=== PATIENT | female | born 1940 | race Caucasian/White ===

== ENCOUNTER 2020-05-12 15:32 | Outpatient (CLI) | payer MEDICARE, SELFPAY ==
--- NOTE | ~2020-05-12 | CT_ITS ---
EXAMINATION: CT chest wo con EXAM DATE: 05/12/2020 15:57 INDICATION: Lung cancer. TECHNIQUE: Spiral CT of the chest without contrast. Axial, coronal and sagittal images were reviewe d. Coronal maximum intensity pixel images of chest reviewed. The dose-length product (DLP) for this examination was 116.67 mGy-cm. The exposure was tailored according to patient size (auto mA exposur e control), and iterative reconstruction (ASIR) was used as additional dose reduction technique. Comp arison is made to prior examination from 09/25/2019. FINDINGS: Surgical changes from left lower lobectomy. Mild emphysema. There is mild bronchiectasis. S everal bilateral groundglass nodular opacities up to 4 mm in size again noted, chronic and unchanged. There are no pleural or pericardial effusions. Tracheobronchial tree is patent. There is no med iastinal, hilar or axillary lymphadenopathy. There is no pneumothorax. Heart normal in size. Th ere is mild coronary arterial calcification, arterial sclerosis. Moderate-sized gastroesophageal hia juan hernia. Splenic granulomata. T3 bone island, T6 hemangioma unchanged. There is no significant i nterval change. IMPRESSION: 1. Mild emphysema and bronchiectasis. 2. Moderate hiatal hernia. 3. Other chronic, surgical changes. Reviewed, dictated and finalized at location B.
== END 2020-05-12 15:33 | disposition home or self-care (01) ==
PROVIDERS: PCP Family Medicine; Visit Provider Nurse Practitioner Family
DX: C34.90 Malignant neoplasm of unspecified part of unspecified bronchus or lung (principal); J43.9 Emphysema, unspecified; J47.9 Bronchiectasis, uncomplicated; K44.9 Diaphragmatic hernia without obstruction or gangrene; Z98.890 Other specified postprocedural states
CPT/HCPCS: 71250

== ENCOUNTER → 2021-05-08 04:46 | Outpatient (CLI) | payer MEDICARE, SELFPAY ==
[2021-05-08 18:47] LABS: SARS-CoV-2 RNA PCR Negative
== END ==
PROVIDERS: PCP Family Medicine; Visit Provider Internal Medicine Gastroenterology
DX: Z01.812 Encounter for preprocedural laboratory examination (principal); Z20.822 Contact with and (suspected) exposure to COVID-19
CPT/HCPCS: C9803; U0003; U0005

== ENCOUNTER 2021-05-11 00:59 | Day surgery (SDC) | payer MEDICARE, SELFPAY ==
[2021-04-24 13:20] VITALS: BMI 22.2
--- NOTE | 2021-05-11 06:56 | WPDANESEPP ---
Anes - Eval Pre Procedure Procedure: Operation Date: 05/11/21 08:00 Proposed Procedures p Esophagogastroduodenoscopy - Lorne Bonner MD Date/Time: 05/11/21 06:56 Pre Op Diagnosis: dysphagia Patient Data Age: 81 Gender: F Height: 1.6 m Weight: 57 kg Allergies Allergy/AdvReac Type Severity Reaction Status Date / Time Sulfa (Sulfonamide Allergy Severe Rash Verified 04/24/21 13:15 Antibiotics) adhesive tape AdvReac Hives Verified 04/24/21 13:15 Home Medications Medication Instructions Recorded Confirmed Type Eliquis 5 mg PO Q12HR 30 Days #60 tablet 10/01/19 04/24/21 Rx sotalol 80 mg tablet 40 mg PO ONCE tablet 11/06/19 04/24/21 History fluticasone propionate [Flovent 2 puff INHALATION Q12HRT PRN 04/24/21 04/24/21 History HFA] memantine 10 mg PO DAILY 04/24/21 04/24/21 History Patient hx anesthesia problems: none Family hx anesthesia problems: none [facility] Past Medical History Medical History Arthritis Asthma Recently diagnosed on PFTs; she has yet to fill her inhaler. Notes having no symptoms of such. Atrial fibrillation Metz palsy right sided Cataracts, bilateral Dementia early Esophageal dilatation x2 Esophageal stricture Last EGD with dilatation was in June [address] Bonner. Fracture closed, clavicle, shaft Heart murmur HTN (hypertension) boderline Hyperlipidemia boderline Hypothyroid Lung cancer Status post left lower lobectomy [place] [address] Austin Adkins. Mild dementia Mitral valve disease Mild MR by echo September 2019. Patient of Dr. Chaz Ortiz. Seasonal allergies Severe sepsis Hospitalized for E coli septicemia September 2019 Surgical History Surgical History H/O: hysterectomy History of appendectomy 1959. History of bladder suspension procedure History of breast biopsy With benign pathology. History of cataract surgery Hx of cataract removal with insertion of prosthetic lens Status post lobectomy of lung Left lower lobectomy for lung cancer in 2013. Family History Family History Father Cerebrovascular accident Grandparent Family history of malignant neoplasm Mother Unknown family medical history Social History Social History Social History: The patient lives in [place], [place] with her significant other, Mike. She designates her daughter, Katya Foy, as her surrogate decision maker and she wishes to be a full code. She has at the most a 5 pack year smoking history and quit in her 20s or 30s. No alcohol or drug use. Smoking packs per day: 0.5 Smoking cigarettes per day: 10.0 Smoking status: Former smoker Tobacco type: cigarettes Alcohol intake: never Substance use: never Substance use type: does not use Living arrangements: with friend(s) Additional living arrangements comments: Lives at home with her significant other IVONE. She has cats at home. Gender identity (if verbalized by the patient): Female Spiritual care concerns: No Agree to blood products: Yes Exam Day of Procedure 05/11/21 06:56
[2021-05-11 07:11] VITALS: BP 172/52; PULSE 52; RESP 18; TEMP 36.5; O2SAT 99; BMI 21.9
--- NOTE | 2021-05-11 07:18 | WPDANESEPPF ---
Anes - Initial Pre Proc Eval Procedure: Operation Date: 05/11/21 08:00 Proposed Procedures p Esophagogastroduodenoscopy - Lorne Bonner MD Date/Time: 05/11/21 07:18 Surgeon: Lorne Bonner MD Pre Op Diagnosis: dysphagia Patient Data Age: 81 Gender: F Height: 5 ft 3 in Weight: 56.2 kg Last Vital Signs Temp 97.7 F 05/11/21 07:11 Pulse 52 L 05/11/21 07:11 Resp 18 05/11/21 07:11 BP 172/52 H 05/11/21 07:11 Pulse Ox 99 05/11/21 07:11 Allergies Allergy/AdvReac Type Severity Reaction Status Date / Time Sulfa (Sulfonamide Allergy Severe Rash Verified 05/11/21 07:10 Antibiotics) adhesive tape AdvReac Hives Verified 05/11/21 07:10 Home Medications Medication Instructions Recorded Confirmed Type Eliquis 5 mg PO Q12HR 30 Days #60 tablet 10/01/19 05/11/21 Rx sotalol 80 mg tablet 40 mg PO ONCE tablet 11/06/19 04/24/21 History fluticasone propionate [Flovent 2 puff INHALATION Q12HRT PRN 04/24/21 04/24/21 History HFA] memantine 10 mg PO DAILY 04/24/21 04/24/21 History Patient hx anesthesia problems: none Family hx anesthesia problems: none PMFSH Past Medical History Medical History Arthritis Asthma Recently diagnosed on PFTs; she has yet to fill her inhaler. Notes having no symptoms of such. Atrial fibrillation Metz palsy right sided Cataracts, bilateral Dementia early Esophageal dilatation x2 Esophageal stricture Last EGD with dilatation was in June [address] Bonner. Fracture closed, clavicle, shaft Heart murmur HTN (hypertension) boderline Hyperlipidemia boderline Hypothyroid Lung cancer Status post left lower lobectomy in [address] Austin Adkins. Mild dementia Mitral valve disease Mild MR by echo September 2019. Patient of Dr. Chaz Ortiz. Seasonal allergies Severe sepsis Hospitalized for E coli septicemia September 2019 Surgical History Surgical History H/O: hysterectomy History of appendectomy 1959. History of bladder suspension procedure History of breast biopsy With benign pathology. History of cataract surgery Hx of cataract removal with insertion of prosthetic lens Status post lobectomy of lung Left lower lobectomy for lung cancer in 2014. Family History Family History Father Cerebrovascular accident Grandparent Family history of malignant neoplasm Mother Unknown family medical history Social History Social History Social History: The patient lives in [place], [place] with her significant other, Mike. She designates her daughter, Katya Foy, as her surrogate decision maker and she wishes to be a full code. She has at the most a 5 pack year smoking history and quit in her 20s or 30s. No alcohol or drug use. Smoking packs per day: 0.5 Smoking cigarettes per day: 10.0 Smoking status: Former smoker Tobacco type: cigarettes Alcohol intake: never Substance use: never Substance use type: does not use Living arrangements: with friend(s) Additional living arrangements comments: Lives at home with her significant other IVONE. She has cats at home. Gender identity (if verbalized by the patient): Female Spiritual care concerns: No Agree to blood products: Yes Anes - Eval Final PreProcedure Day of Procedure 05/11/21 07:18 Patient weight: normal Heart: bradycardia and murmur Lungs: clear to auscultation Airway: Mallampati scale class II Neurological: alert and oriented Last oral intake: >/= 8 hours ASA classification: III Emergent: no Anesthetic plan: proceed Anesthesia type and monitoring: general GIVS and standard monitoring Informed Consent: The patient's anesthetic plan and its attendant risks and benefits were discussed with the patient/family/POA. Que
[2021-05-11] MEDS: LACTATED RINGERS 1,000 ML 150 ML IV CONT (07:21)
--- NOTE | 2021-05-11 08:03 | PM.HPGS ---
History of Present Illness History of Present Illness Consent: Risks, benefits, and alternatives have been discussed and questions answered. Patient agrees to proceed with procedure. Chief complaint: dysphagia Narrative: Candie Monroy is a 81 year old female who has been having increasing difficulty with swallowing. About 2 years ago she had a high-grade esophageal stricture which was dilated. She denies chronic acid reflux. Lately she states that she has to leave the table at times when food is stuck Review of Systems Review of Systems: All systems reviewed & are unremarkable except as noted in HPI and below PMFSH Past Medical History Medical History (Updated 05/11/21 @ 08:05 by Lorne Bonner MD) Arthritis Asthma Recently diagnosed on PFTs; she has yet to fill her inhaler. Notes having no symptoms of such. Atrial fibrillation Metz palsy right sided Cataracts, bilateral Dementia early Esophageal dilatation x2 Esophageal stricture Last EGD with dilatation was in June [address] Bonner. Fracture closed, clavicle, shaft Heart murmur HTN (hypertension) boderline Hyperlipidemia boderline Hypothyroid Lung cancer Status post left lower lobectomy [place] [address] Austin Adkins. Mild dementia Mitral valve disease Mild MR by echo September 2019. Patient of Dr. Chaz Ortiz. Seasonal allergies Severe sepsis Hospitalized for E coli septicemia September 2019 Surgical History Surgical History H/O: hysterectomy History of appendectomy 1959. History of bladder suspension procedure History of breast biopsy With benign pathology. History of cataract surgery Hx of cataract removal with insertion of prosthetic lens Status post lobectomy of lung Left lower lobectomy for lung cancer in 2013. Family History Family History Father Cerebrovascular accident Grandparent Family history of malignant neoplasm Mother Unknown family medical history Social History Social History Social History: The patient lives in [place], [place] with her significant other, Mike. She designates her daughter, Katya Foy, as her surrogate decision maker and she wishes to be a full code. She has at the most a 5 pack year smoking history and quit in her 20s or 30s. No alcohol or drug use. Smoking packs per day: 0.5 Smoking cigarettes per day: 10.0 Smoking status: Former smoker Tobacco type: cigarettes Alcohol intake: never Substance use: never Substance use type: does not use Living arrangements: with friend(s) Additional living arrangements comments: Lives at home with her significant other IVONE. She has cats at home. Gender identity (if verbalized by the patient): Female Spiritual care concerns: No Agree to blood products: Yes Meds Home Medications and Allergies Home Medications Medication Instructions Recorded Confirmed Type Eliquis 5 mg PO Q12HR 30 Days #60 tablet 10/01/19 05/11/21 Rx sotalol 80 mg tablet 40 mg PO ONCE tablet 11/06/19 04/24/21 History fluticasone propionate [Flovent 2 puff INHALATION Q12HRT PRN 04/24/21 05/11/21 History HFA] memantine 10 mg PO DAILY 04/24/21 04/24/21 History Allergies Allergy/AdvReac Type Severity Reaction Status Date / Time Sulfa (Sulfonamide Allergy Severe Rash Verified 05/11/21 07:10 Antibiotics) adhesive tape AdvReac Hives Verified 05/11/21 07:10 Vital Signs Vital Signs - 24 hr 05/11/21 07:11 Temperature 36.5 C Pulse Rate 52 L Respiratory Rate 18 Blood Pressure 172/52 H Pulse Oximetry 99 Exam Const: General: alert Orientation/consciousness: patient oriented x3 Resp: Auscultation: clear to auscultation bilaterally Cardio: Rhythm: regular rhythm GI: GI Palp: Yes Soft to palpation and No Tenderness to palpation present (GI) N
[2021-05-11 08:18] VITALS: BP 106/48; PULSE 45; RESP 18; O2SAT 98
[2021-05-11 08:28] VITALS: BP 102/46; PULSE 44; RESP 18; O2SAT 97
[2021-05-11 08:37] VITALS: BP 113/58; PULSE 44; RESP 18; O2SAT 99
== END 2021-05-11 08:55 | disposition home or self-care (01) ==
PROVIDERS: PCP Family Medicine; Visit Provider Internal Medicine Gastroenterology
PROC: 0DJ08ZZ Inspection of Upper Intestinal Tract, Via Natural or Artificial Opening Endoscopic (ICD-10-PCS; CPT 43235; principal; 2021-05-11 08:00)
DX: R13.19 Other dysphagia (principal); K22.2 Esophageal obstruction; K44.9 Diaphragmatic hernia without obstruction or gangrene; M19.90 Unspecified osteoarthritis, unspecified site; J45.909 Unspecified asthma, uncomplicated; R01.1 Cardiac murmur, unspecified; Z85.118 Personal history of other malignant neoplasm of bronchus and lung; I34.8 Other nonrheumatic mitral valve disorders; Z87.891 Personal history of nicotine dependence; Z79.01 Long term (current) use of anticoagulants
CPT/HCPCS: 43249; C1726; J2704; J7120

== ENCOUNTER 2021-07-13 00:18 | Day surgery (SDC) | payer MEDICARE, SELFPAY ==
[2021-07-01 14:31] VITALS: BMI 21.9
--- NOTE | 2021-07-13 08:54 | PM.HPGS ---
History of Present Illness History of Present Illness Consent: Risks, benefits, and alternatives have been discussed and questions answered. Patient agrees to proceed with procedure. Chief complaint: Esophageal Stricture Narrative: Candie Monroy is a 81 year old female with an esophageal stricture. It was dilated in April of this year, but only up to 12 mm because it was quite narrow. She is still having some dysphagia. She returns now for further treatment Review of Systems Review of Systems: All systems reviewed & are unremarkable except as noted in HPI and below PMFSH Past Medical History Medical History Arthritis Asthma Recently diagnosed on PFTs; she has yet to fill her inhaler. Notes having no symptoms of such. Atrial fibrillation Metz palsy right sided Cataracts, bilateral Dementia early Esophageal dilatation x2 Esophageal stricture Last EGD with dilatation was in June [address] Bonner. Fracture closed, clavicle, shaft Heart murmur HTN (hypertension) boderline Hyperlipidemia boderline Hypothyroid Lung cancer Status post left lower lobectomy in [address] Austin Adkins. Mild dementia Mitral valve disease Mild MR by echo September 2019. Patient of Dr. Chaz Ortiz. Seasonal allergies Severe sepsis Hospitalized for E coli septicemia September 2019 Surgical History Surgical History H/O: hysterectomy History of appendectomy 1959. History of bladder suspension procedure History of breast biopsy With benign pathology. History of cataract surgery Hx of cataract removal with insertion of prosthetic lens Status post lobectomy of lung Left lower lobectomy for lung cancer in 2013. Family History Family History Father Cerebrovascular accident Grandparent Family history of malignant neoplasm Mother Unknown family medical history Social History Social History Social History: The patient lives in [place], [place] with her significant other, Mike. She designates her daughter, Katya Foy, as her surrogate decision maker and she wishes to be a full code. She has at the most a 5 pack year smoking history and quit in her 20s or 30s. No alcohol or drug use. Smoking packs per day: 0.5 Smoking cigarettes per day: 10.0 Smoking status: Former smoker Tobacco type: cigarettes Alcohol intake: current Drinks per week: 1 Substance use: never Substance use type: does not use Living arrangements: with friend(s) Additional living arrangements comments: LIVES WITH BOYFRIEND Gender identity (if verbalized by the patient): Female Spiritual care concerns: No Agree to blood products: Yes Meds Home Medications and Allergies Home Medications Medication Instructions Recorded Confirmed Type Eliquis 5 mg PO Q12HR 30 Days #60 tablet 10/01/19 07/01/21 Rx sotalol 80 mg tablet 40 mg PO ONCE tablet 11/06/19 07/01/21 History Flovent HFA 2 puff INHALATION Q12HRT PRN 04/24/21 07/01/21 History memantine 10 mg PO DAILY 04/24/21 07/01/21 History omeprazole 40 mg capsule,delayed 40 mg PO DAILY #30 cap 05/13/21 07/01/21 Rx release Allergies Allergy/AdvReac Type Severity Reaction Status Date / Time Sulfa (Sulfonamide Allergy Severe Rash Verified 07/13/21 10:06 Antibiotics) adhesive tape AdvReac Hives Verified 07/13/21 10:06 Exam Const: General: alert Orientation/consciousness: patient oriented x3 Resp: Auscultation: clear to auscultation bilaterally Cardio: Rhythm: regular rhythm GI: GI Palp: Yes Soft to palpation and No Tenderness to palpation present (GI) Neuro: General: patient oriented x3 Assessment and Plan Assessment and plan (1) Dysphagia: Code(s): R13.10 - Dysphagia, unspecified Status: Acute
--- NOTE | 2021-07-13 09:25 | WPDANESEPPF ---
Anes - Initial Pre Proc Eval Procedure: Operation Date: 07/13/21 11:00 Proposed Procedures p Esophagogastroduodenoscopy - Lorne Bonner MD Date/Time: 07/13/21 09:25 Surgeon: Lorne Bonner MD Pre Op Diagnosis: Esophageal Stricture Patient Data Age: 81 Gender: F Height: 1.63 m Weight: 58 kg Allergies Allergy/AdvReac Type Severity Reaction Status Date / Time Sulfa (Sulfonamide Allergy Severe Rash Verified 07/13/21 10:06 Antibiotics) adhesive tape AdvReac Hives Verified 07/13/21 10:06 Home Medications Medication Instructions Recorded Confirmed Type Eliquis 5 mg PO Q12HR 30 Days #60 tablet 10/01/19 07/01/21 Rx sotalol 80 mg tablet 40 mg PO ONCE tablet 11/06/19 07/01/21 History Flovent HFA 2 puff INHALATION Q12HRT PRN 04/24/21 07/01/21 History memantine 10 mg PO DAILY 04/24/21 07/01/21 History omeprazole 40 mg capsule,delayed 40 mg PO DAILY #30 cap 05/13/21 07/01/21 Rx release Patient hx anesthesia problems: none Family hx anesthesia problems: none PMFSH Past Medical History Medical History Arthritis Asthma Recently diagnosed on PFTs; she has yet to fill her inhaler. Notes having no symptoms of such. Atrial fibrillation Metz palsy right sided Cataracts, bilateral Dementia early Esophageal dilatation x2 Esophageal stricture Last EGD with dilatation was in June [address] Bonner. Fracture closed, clavicle, shaft Heart murmur HTN (hypertension) boderline Hyperlipidemia boderline Hypothyroid Lung cancer Status post left lower lobectomy [place] [address] Austin Adkins. Mild dementia Mitral valve disease Mild MR by echo September 2019. Patient of Dr. Chaz Ortiz. Seasonal allergies Severe sepsis Hospitalized for E coli septicemia September 2019 Surgical History Surgical History H/O: hysterectomy History of appendectomy 1959. History of bladder suspension procedure History of breast biopsy With benign pathology. History of cataract surgery Hx of cataract removal with insertion of prosthetic lens Status post lobectomy of lung Left lower lobectomy for lung cancer in 2013. Family History Family History Father Cerebrovascular accident Grandparent Family history of malignant neoplasm Mother Unknown family medical history Social History Social History Social History: The patient lives in [place], [place] with her significant other, Mike. She designates her daughter, Katya Foy, as her surrogate decision maker and she wishes to be a full code. She has at the most a 5 pack year smoking history and quit in her 20s or 30s. No alcohol or drug use. Smoking packs per day: 0.5 Smoking cigarettes per day: 10.0 Smoking status: Former smoker Tobacco type: cigarettes Alcohol intake: current Drinks per week: 1 Substance use: never Substance use type: does not use Living arrangements: with friend(s) Additional living arrangements comments: LIVES WITH BOYFRIEND Gender identity (if verbalized by the patient): Female Spiritual care concerns: No Agree to blood products: Yes Anes - Eval Final PreProcedure Day of Procedure 07/13/21 09:25 Patient weight: normal Heart: regular rate and rhythm Lungs: clear to auscultation and normal air movement Airway: Mallampati scale class II Neurological: alert and oriented Last oral intake: >/= 8 hours ASA classification: III Emergent: no Anesthetic plan: proceed Anesthesia type and monitoring: general GIVS Informed Consent: The patient's anesthetic plan and its attendant risks and benefits were discussed with the patient/family/POA. Questions were solicited and answers provided to the satisfaction of the patient/family/POA.
[2021-07-13 10:07] VITALS: BP 161/68; PULSE 49; RESP 18; TEMP 36.4; O2SAT 98
[2021-07-13] MEDS: LACTATED RINGERS 1,000 ML 150 ML IV CONT (10:16)
[2021-07-13 11:00] VITALS: BP 85/50; PULSE 54; RESP 23; O2SAT 99
[2021-07-13 11:10] VITALS: BP 95/43; PULSE 46; RESP 21; O2SAT 100
[2021-07-13 11:20] VITALS: BP 144/51; PULSE 54; RESP 26; O2SAT 97
== END 2021-07-13 11:39 | disposition home or self-care (01) ==
PROVIDERS: PCP Family Medicine; Visit Provider Internal Medicine Gastroenterology
PROC: 0DJ08ZZ Inspection of Upper Intestinal Tract, Via Natural or Artificial Opening Endoscopic (ICD-10-PCS; CPT 43235; principal; 2021-07-13 11:00)
DX: R13.19 Other dysphagia (principal); K22.2 Esophageal obstruction; K44.9 Diaphragmatic hernia without obstruction or gangrene; M19.90 Unspecified osteoarthritis, unspecified site; J45.909 Unspecified asthma, uncomplicated; G51.0 Bell's palsy; F03.90 Unspecified dementia, unspecified severity, without behavioral disturbance, psychotic disturbance, mood disturbance, and anxiety; R01.1 Cardiac murmur, unspecified; I10 Essential (primary) hypertension; E78.5 Hyperlipidemia, unspecified; E03.9 Hypothyroidism, unspecified; I05.9 Rheumatic mitral valve disease, unspecified; Z87.891 Personal history of nicotine dependence; I48.91 Unspecified atrial fibrillation; Z79.01 Long term (current) use of anticoagulants
CPT/HCPCS: 43249; C1726; J2704; J7120

== ENCOUNTER 2021-09-21 02:11 | Day surgery (SDC) | payer MEDICARE, SELFPAY ==
--- NOTE | 2021-09-18 14:01 | PM.HPGS ---
History of Present Illness History of Present Illness Consent: Risks, benefits, and alternatives have been discussed and questions answered. Patient agrees to proceed with procedure. Chief complaint: dysphagia, esophageal stricture Narrative: Candie Monroy is a 81 year old female who has a high-grade stricture of the distal esophagus. She has had this dilated twice this year but he is again having difficulty swallowing. Review of Systems Review of Systems: All systems reviewed & are unremarkable except as noted in HPI and below PMFSH Past Medical History Medical History Arthritis Asthma Recently diagnosed on PFTs; she has yet to fill her inhaler. Notes having no symptoms of such. Atrial fibrillation Metz palsy right sided Cataracts, bilateral Dementia early Esophageal dilatation x2 Esophageal stricture Last EGD with dilatation was in June [address] Bonner. Fracture closed, clavicle, shaft Heart murmur HTN (hypertension) boderline Hyperlipidemia boderline Hypothyroid Lung cancer Status post left lower lobectomy in [address] Austin Adkins. Mild dementia Mitral valve disease Mild MR by echo September 2019. Patient of Dr. Chaz Ortiz. Seasonal allergies Severe sepsis Hospitalized for E coli septicemia September 2019 Surgical History Surgical History H/O: hysterectomy History of appendectomy 1959. History of bladder suspension procedure History of breast biopsy With benign pathology. History of cataract surgery Hx of cataract removal with insertion of prosthetic lens Status post lobectomy of lung Left lower lobectomy for lung cancer in 2013. Family History Family History Father Cerebrovascular accident Grandparent Family history of malignant neoplasm Mother Unknown family medical history Social History Social History Social History: The patient lives in [place], [place] with her significant other, Mike. She designates her daughter, Katya Foy, as her surrogate decision maker and she wishes to be a full code. She has at the most a 5 pack year smoking history and quit in her 20s or 30s. No alcohol or drug use. Smoking packs per day: 0.5 Smoking cigarettes per day: 10.0 Smoking status: Former smoker Tobacco type: cigarettes Alcohol intake: current Drinks per week: 1 Substance use: never Substance use type: does not use Living arrangements: with friend(s) Additional living arrangements comments: SIG. OTHER Gender identity (if verbalized by the patient): Female Spiritual care concerns: No Agree to blood products: Yes Meds Home Medications and Allergies Home Medications Medication Instructions Recorded Confirmed Type Eliquis 5 mg PO Q12HR 30 Days #60 tablet 10/01/19 09/21/21 Rx sotalol 80 mg tablet 40 mg PO BID tablet 11/06/19 09/21/21 History Flovent HFA 2 puff INHALATION Q12HRT PRN 04/24/21 09/21/21 History memantine 10 mg PO DAILY 04/24/21 09/21/21 History omeprazole 40 mg capsule,delayed 40 mg PO DAILY #30 cap 05/13/21 09/21/21 Rx release Allergies Allergy/AdvReac Type Severity Reaction Status Date / Time Sulfa (Sulfonamide Allergy Severe Rash Verified 09/21/21 10:27 Antibiotics) adhesive tape AdvReac Hives Verified 09/21/21 10:27 Exam Const: General: alert Orientation/consciousness: patient oriented x3 Resp: Auscultation: clear to auscultation bilaterally Cardio: Rhythm: regular rhythm GI: GI Palp: Yes Soft to palpation and No Tenderness to palpation present (GI) Neuro: General: patient oriented x3 Assessment and Plan Assessment and plan (1) Dysphagia: Code(s): R13.10 - Dysphagia, unspecified Status: Acute Assessment and Plan: EGD with possible biopsy o
[2021-09-21 10:31] VITALS: BP 134/63; PULSE 52; RESP 15; TEMP 36.9; O2SAT 99; BMI 23.6
[2021-09-21] MEDS: LACTATED RINGERS 1,000 ML 150 ML IV CONT (10:34)
--- NOTE | 2021-09-21 10:57 | WPDANESEPPF ---
Anes - Initial Pre Proc Eval Procedure: Operation Date: 09/21/21 11:30 Proposed Procedures p Esophagogastroduodenoscopy - Lorne Bonner MD Date/Time: 09/21/21 10:57 Surgeon: Lorne Bonner MD Pre Op Diagnosis: dysphagia, esophageal stricture Patient Data Age: 81 Gender: F Height: 1.52 m Weight: 55 kg Last Vital Signs Temp 36.9 C 09/21/21 10:31 Pulse 52 L 09/21/21 10:31 Resp 15 09/21/21 10:31 BP 134/63 09/21/21 10:31 Pulse Ox 99 09/21/21 10:31 Allergies Allergy/AdvReac Type Severity Reaction Status Date / Time Sulfa (Sulfonamide Allergy Severe Rash Verified 09/21/21 10:27 Antibiotics) adhesive tape AdvReac Hives Verified 09/21/21 10:27 Home Medications Medication Instructions Recorded Confirmed Type Eliquis 5 mg PO Q12HR 30 Days #60 tablet 10/01/19 09/21/21 Rx sotalol 80 mg tablet 40 mg PO BID tablet 11/06/19 09/21/21 History Flovent HFA 2 puff INHALATION Q12HRT PRN 04/24/21 09/21/21 History memantine 10 mg PO DAILY 04/24/21 09/21/21 History omeprazole 40 mg capsule,delayed 40 mg PO DAILY #30 cap 05/13/21 09/21/21 Rx release Patient hx anesthesia problems: none Family hx anesthesia problems: none Results Review: All pre-operative results and documents have been reviewed as part of the pre-operative evaluation. [facility] Past Medical History Medical History Arthritis Asthma Recently diagnosed on PFTs; she has yet to fill her inhaler. Notes having no symptoms of such. Atrial fibrillation Metz palsy right sided Cataracts, bilateral Dementia early Esophageal dilatation x2 Esophageal stricture Last EGD with dilatation was in June [address] Bonner. Fracture closed, clavicle, shaft Heart murmur HTN (hypertension) boderline Hyperlipidemia boderline Hypothyroid Lung cancer Status post left lower lobectomy [place] [address] Austin Adkins. Mild dementia Mitral valve disease Mild MR by echo September 2019. Patient of Dr. Chaz Ortiz. Seasonal allergies Severe sepsis Hospitalized for E coli septicemia September 2019 Surgical History Surgical History H/O: hysterectomy History of appendectomy 1959. History of bladder suspension procedure History of breast biopsy With benign pathology. History of cataract surgery Hx of cataract removal with insertion of prosthetic lens Status post lobectomy of lung Left lower lobectomy for lung cancer in 2013. Family History Family History Father Cerebrovascular accident Grandparent Family history of malignant neoplasm Mother Unknown family medical history Social History Social History Social History: The patient lives in [place], [place] with her significant other, Mike. She designates her daughter, Katya Foy, as her surrogate decision maker and she wishes to be a full code. She has at the most a 5 pack year smoking history and quit in her 20s or 30s. No alcohol or drug use. Smoking packs per day: 0.5 Smoking cigarettes per day: 10.0 Smoking status: Former smoker Tobacco type: cigarettes Alcohol intake: current Drinks per week: 1 Substance use: never Substance use type: does not use Living arrangements: with friend(s) Additional living arrangements comments: SIG. OTHER Gender identity (if verbalized by the patient): Female Spiritual care concerns: No Agree to blood products: Yes Anes - Eval Final PreProcedure Day of Procedure 09/21/21 10:57 Patient weight: normal Heart: regular rate and rhythm Lungs: decreased breath sounds Airway: Mallampati scale class II Neurological: other (alert) Last oral intake: >/= 8 hours ASA classification: III Emergent: no Anesthetic plan: proceed Anesthesia type and monitoring: general GI
[2021-09-21 11:25] VITALS: BP 102/52; PULSE 52; RESP 22; O2SAT 95
[2021-09-21 11:35] VITALS: BP 101/58; PULSE 49; RESP 22; O2SAT 96
[2021-09-21 11:45] VITALS: BP 118/52; PULSE 49; RESP 17; O2SAT 96
== END 2021-09-21 12:02 | disposition home or self-care (01) ==
PROVIDERS: PCP Family Medicine; Visit Provider Internal Medicine Gastroenterology
PROC: 0DJ08ZZ Inspection of Upper Intestinal Tract, Via Natural or Artificial Opening Endoscopic (ICD-10-PCS; CPT 43235; principal; 2021-09-21 11:30)
DX: R13.19 Other dysphagia (principal); K22.2 Esophageal obstruction; K44.9 Diaphragmatic hernia without obstruction or gangrene; Z79.01 Long term (current) use of anticoagulants; M19.90 Unspecified osteoarthritis, unspecified site; J45.909 Unspecified asthma, uncomplicated; I48.91 Unspecified atrial fibrillation; Z79.51 Long term (current) use of inhaled steroids; G51.0 Bell's palsy; F03.90 Unspecified dementia, unspecified severity, without behavioral disturbance, psychotic disturbance, mood disturbance, and anxiety; I10 Essential (primary) hypertension; R01.1 Cardiac murmur, unspecified; E78.5 Hyperlipidemia, unspecified; E03.9 Hypothyroidism, unspecified; I34.9 Nonrheumatic mitral valve disorder, unspecified; Z87.891 Personal history of nicotine dependence
CPT/HCPCS: 43249; C1726; J2704; J7120

== ENCOUNTER 2022-02-11 10:38 | Outpatient (CLI) | payer MEDICARE, MEDICAID, SELFPAY ==
--- NOTE | ~2022-02-11 | XR_ITS ---
XR chest 2V 02/11/2022 10:59 Indication: Cough Procedure: 2 view chest Comparison: Comparison to multiple prior studies sequentially, with oldest reviewed study dated 03/2019. Findings: There is a nodular appearance to the left hilum, suspicious for lymphadenopathy. There are nodular asymmetries in the right upper lung. Borderline heart size. There is atherosclerosis of the a bertha. No significant effusion, edema or pneumothorax. There are degenerative changes of the spine and shoulders. Impression: 1: Possible left hilar lymphadenopathy. Recommend correlation with contrast-enhanced CT chest. Nodula r densities in the right upper thorax would also be better evaluated with CT. Reviewed, dictated and finalized at location A. Impression: 1: Possible left hilar lymphadenopathy. Recommend correlation with contrast-enh anced CT chest. Nodular densities in the right upper thorax would also be phil r evaluated with CT.
== END 2022-02-11 10:39 | disposition home or self-care (01) ==
PROVIDERS: PCP Family Medicine; Visit Provider Family Medicine
DX: R05.9 Cough, unspecified (principal)
CPT/HCPCS: 71046

== ENCOUNTER 2022-02-15 12:56 | Outpatient (CLI) | payer MEDICARE, MEDICAID, SELFPAY ==
--- NOTE | ~2022-02-15 | CT_ITS ---
EXAMINATION: CT diagnostic chest w con EXAM DATE: 02/15/2022 13:34 INDICATION: R05.9 - Cough, unspecified. TECHNIQUE: Spiral CT of the chest following intravenous injection of 75 mL Omnipaque 350. Axial, cor onal and sagittal images of the chest were reviewed. Coronal maximum intensity pixel images of chest reviewed. The dose-length product (DLP) for this examination was 115.79 mGy-cm. The exposure was t ailored according to patient size (auto mA exposure control), and iterative reconstruction (ASIR) was used as additional dose reduction technique. Comparison is made to prior examination from 05/12/2020. FINDINGS: There is mild emphysema and bronchiectasis. Interval development of right upper lobe anter ior segmental opacity with volume loss, region measuring about 3.7 x 2.0 cm, differential diagnosis i ncluding primary lung cancer, atelectasis, pneumonia. Interval development of scattered bilateral juan alberto e-in-bud pattern reticular nodular opacities appearance consistent with endobronchial spread of infec tion. Small amount of right middle lobe atelectasis. There is moderate sliding gastroesophageal hiata l hernia. The main, central pulmonary arteries are dilated which can indicate elevated pulmonary arterial press ure, pulmonary arterial hypertension. There are no pleural or pericardial effusions. Tracheobronc hial tree is patent. There is no mediastinal, hilar or axillary lymphadenopathy. There is no pneu mothorax. Heart normal in size. There is mild coronary arterial calcification, arterial sclerosis . Splenic granulomata. Few scattered small bone islands unchanged. IMPRESSION: 1. Development of left upper lobe paramedian masslike opacity without spiculations, could be pneumon ia, cancer, atelectasis. Recommend one-month follow-up chest CT. If this persists, bronchoscopy or PE T CT should be considered. 2. Development of scattered regions of bilateral tree-in-bud airspace disease generally indicating e ndobronchial spread of infection, or could be postinfectious. 3. Mild emphysema and bronchiectasis. 4. Moderate hiatal hernia. Reviewed, dictated and finalized at location B. IMPRESSION: 1. Development of left upper lobe paramedian masslike opacity without spiculat ions, could be pneumonia, cancer, atelectasis. Recommend one-month follow-up ch est CT. If this persists, bronchoscopy or PET CT should be considered. 2. Development of scattered regions of bilateral tree-in-bud airspace disease generally indicating endobronchial spread of infection, or could be postinfecti ous. 3. Mild emphysema and bronchiectasis. 4. Moderate hiatal hernia.
[2022-02-15 13:29] LABS: Estimated Glomerular Filt Rate > 60
== END 2022-02-15 12:57 | disposition home or self-care (01) ==
LOC: ANHIMG 13:00
PROVIDERS: PCP Family Medicine; Visit Provider Family Medicine
DX: R05.9 Cough, unspecified (principal); R93.89 Abnormal findings on diagnostic imaging of other specified body structures; Z85.118 Personal history of other malignant neoplasm of bronchus and lung; K44.9 Diaphragmatic hernia without obstruction or gangrene; J43.9 Emphysema, unspecified; R91.8 Other nonspecific abnormal finding of lung field
CPT/HCPCS: 71260; Q9967

== ENCOUNTER 2022-03-22 10:20 | Outpatient (CLI) | payer MEDICARE, MEDICAID, SELFPAY ==
--- NOTE | ~2022-03-22 | CT_ITS ---
EXAMINATION: CT diagnostic chest wo con DATE: 03/22/2022 10:48 INDICATION: Cough, history of lung cancer TECHNIQUE: Computed tomography (CT) of the chest was performed without intravenous contrast. The dose -length product (DLP) was 124.43 mGy-cm. Automated exposure control and iterative reconstruction tech Pascal Metricsque were employed. COMPARISON: 02/15/2022 FINDINGS: Previously described left perihilar upper lobe opacity has nearly completely resolved. Ther e are also improving airspace and nodular opacities in the right upper lobe. No new or worsening opac ities are identified. There is no pleural effusion or pneumothorax. There is a moderate-sized hiatal hernia. No pathologically enlarged thoracic lymph nodes are identified. The heart size is normal. Ralf cified coronary artery atherosclerosis is noted. Punctate calcifications in an otherwise normal splee n likely represent healed granulomatous disease. Cholelithiasis is noted. There is mild thoracic spon dylosis. IMPRESSION: 1. Resolving opacities in the right upper lobe and perihilar left upper lobe, consistent with resolvi ng infection. Reviewed, dictated and finalized at location A. IMPRESSION: 1. Resolving opacities in the right upper lobe and perihilar left upper lobe, c onsistent with resolving infection.
== END 2022-03-22 10:21 | disposition home or self-care (01) ==
LOC: ANHIMG 10:26
PROVIDERS: PCP Family Medicine; Visit Provider Family Medicine
DX: R93.89 Abnormal findings on diagnostic imaging of other specified body structures (principal); Z85.118 Personal history of other malignant neoplasm of bronchus and lung
CPT/HCPCS: 71250

== ENCOUNTER 2022-11-16 12:27 | Emergency (ER) | payer MEDICARE, MEDICAID, SELFPAY ==
[2022-11-16 12:33] VITALS: BP 173/81; PULSE 59; RESP 18; TEMP 36.6; O2SAT 97
--- NOTE | 2022-11-16 13:52 | ED.EYEPROB ---
HPI - Eye Problem General Chief complaint: Eye Problems Stated complaint: eye pain/swelling x weeks Time Seen by Provider: 11/16/22 13:29 History of Present Illness HPI Narrative: Patient is an 82-year-old female here for evaluation of an itchy rash under her eyes for the past 10 days. Patient saw her primary care doctor and had topical cream prescribed with some relief, but she ran out of the cream several days ago and the rash returned. Has been trying artificial tears without relief. She states that her eyes are also irritated bilaterally with watery discharge. Denies any soaps, medications or detergents. No eye pain, visual change, fevers, chills, nausea, vomiting, blistering rash. Related Data Home Medications Medication Instructions Recorded Confirmed sotalol 80 mg tablet 40 mg PO BID 11/06/19 02/11/22 Allergies Allergy/AdvReac Type Severity Reaction Status Date / Time Sulfa (Sulfonamide Allergy Severe Rash Verified 10/29/22 14:17 Antibiotics) adhesive tape AdvReac Hives Verified 10/29/22 14:17 Review of Systems Review of Systems: Gen.: Denies fevers or chills Eyes: Reports rash under bilateral eyes. Denies eye pain or visual change ENT: Denies congestion Respiratory: Denies shortness of breath or cough CV: Denies chest pain or palpitations GI: Denies abdominal pain nausea, emesis or diarrhea denies burning, urgency, frequency or hematuria Musculoskeletal: Denies back pain or muscle pain Neuro: Denies numbness, tingling, weakness or focal weakness Skin: Denies rash Except as documented, all other systems reviewed and negative [facility] Past Medical History Medical History (Updated 11/16/22 @ 13:51 by Candi Brady PA-C) Afib Arthritis Asthma Recently diagnosed on PFTs; she has yet to fill her inhaler. Notes having no symptoms of such. Atrial fibrillation Metz palsy right sided Body mass index [BMI] 21.0-21.9, adult (02/19/19) Cataracts, bilateral Chest pain Dementia early Dementia, unspecified, without behavioral disturbance Dysphagia Esophageal dilatation x2 Esophageal stricture Last EGD with dilatation was in June [address] Bonner. Former smoker Fracture closed, clavicle, shaft Gastro-esophageal reflux disease without esophagitis Heart murmur Hiatal hernia History of atrial fibrillation HTN (hypertension) boderline Hyperglycemia Hyperlipidemia boderline Hypothyroid Left arm pain Lumbar radiculopathy Lung cancer Status post left lower lobectomy [place] [address] Austin Adkins. Malignant neoplasm of lower lobe of left lung Malignant neoplasm of lung Memory loss Mild dementia Mitral valve disease Mild MR by echo September 2019. Patient of Dr. Chaz Ortiz. Rib pain on left side Screening for cholesterol level Seasonal allergies Seborrheic keratosis Severe sepsis Hospitalized for E coli septicemia September 2019 SOB (shortness of breath) Surgical History Surgical History H/O: hysterectomy History of appendectomy 1959. History of bladder suspension procedure History of breast biopsy With benign pathology. History of cataract surgery Hx of cataract removal with insertion of prosthetic lens Status post lobectomy of lung Left lower lobectomy for lung cancer in 2013. Family History Family History Father Cerebrovascular accident Grandparent Family history of malignant neoplasm Mother Unknown family medical history Social History Social History Social History: The patient lives in [place], [place] with her significant other, Mike. She designates her daughter, Katya Foy, as her surrogate decision maker and she wishes to be a full code. She has at the most a 5 pack year smoking history and quit in her 20s or 30s. No alcohol or drug use. Smoking packs per day: 0.5 Smoking
[2022-11-16 14:06] VITALS: BP 142/85; PULSE 61; RESP 14; O2SAT 96
== END 2022-11-16 14:07 | disposition home or self-care (01) ==
PROVIDERS: Emergency Provider Physician Assistant; PCP Physician Assistant Medical
DX: H10.9 Unspecified conjunctivitis (principal); I48.91 Unspecified atrial fibrillation; M19.90 Unspecified osteoarthritis, unspecified site; J45.909 Unspecified asthma, uncomplicated; F03.90 Unspecified dementia, unspecified severity, without behavioral disturbance, psychotic disturbance, mood disturbance, and anxiety; K21.9 Gastro-esophageal reflux disease without esophagitis; I10 Essential (primary) hypertension; E78.5 Hyperlipidemia, unspecified; E03.9 Hypothyroidism, unspecified
CPT/HCPCS: 99283; A9270

== ENCOUNTER → 2023-02-02 10:20 | Outpatient (CLI) | payer MEDICARE, SELFPAY ==
--- NOTE | ~2023-02-02 | MM_ITS ---
EXAMINATION: MM screening rosmery BI w reddy HISTORY: Screening mammogram TECHNIQUE: Craniocaudal and mediolateral oblique 3-D tomosynthesis images were obtained and synthetic 2-D images were generated. CAD analysis was submitted and interpreted. COMPARISON: 09/05/2010 bilateral screening mammogram BREAST PARENCHYMAL COMPOSITION: There are scattered areas of fibroglandular density. FINDINGS: Biopsy marker on the right; history of prior bilateral benign breast biopsies. There is no evidence of suspicious mass, calcification, or architectural distortion to suggest malignancy in eith er breast. There has been no suspicious interval change. IMPRESSION: 1. No mammographic evidence of malignancy. 2. Recommend routine screening mammography in one year. BI-RADS Category 1: Negative Reviewed, dictated and finalized at location A.
== END ==
PROVIDERS: PCP Family Medicine; Visit Provider Family Medicine
DX: Z12.31 Encounter for screening mammogram for malignant neoplasm of breast (principal)
CPT/HCPCS: 77063; 77067

== ENCOUNTER 2023-02-21 14:54 | Outpatient (CLI) | payer MEDICARE, MEDICAID, SELFPAY ==
--- NOTE | ~2023-02-21 | CT_ITS ---
EXAMINATION: CT diagnostic chest wo con DATE: 02/21/2023 15:19 INDICATION: Pulmonary nodules, shortness of breath, history of lung cancer TECHNIQUE: Computed tomography (CT) of the chest was performed without intravenous contrast. The dose -length product (DLP) was 54.60 mGy-cm. Automated exposure control and iterative reconstruction techn ique were employed. COMPARISON: 03/22/2022, 02/15/2022 FINDINGS: There is been interval development of bandlike airspace opacities in the lingula, right mid dle lobe and right upper lobe. There are also scattered tree-in-bud nodular opacities throughout the lungs, most prominent in the lingula and left lower lobe. There is a small left pleural effusion. The re is no pneumothorax. The heart size is normal. No pathologically enlarged thoracic lymph nodes are identified. There is mild thoracic spondylosis. There is a moderate-sized sliding hiatal hernia. Punc hernandez calcifications in an otherwise normal spleen likely represent healed granulomatous disease. IMPRESSION: 1. Interval development of multifocal airspace opacities, likely infection/inflammation. Consider fol lowup chest CT in six weeks if symptoms persist after appropriate therapy. 2. Small left pleural effusion. 3. Moderate-sized sliding hiatal hernia. Reviewed, dictated and finalized at location L. IMPRESSION: 1. Interval development of multifocal airspace opacities, likely infection/infl ammation. Consider followup chest CT in six weeks if symptoms persist after ju ropriate therapy. 2. Small left pleural effusion. 3. Moderate-sized sliding hiatal hernia.
== END 2023-02-21 14:55 | disposition home or self-care (01) ==
LOC: ANHIMG 14:56
PROVIDERS: PCP Family Medicine; Visit Provider Physician Assistant
DX: R91.8 Other nonspecific abnormal finding of lung field (principal); R06.02 Shortness of breath; R05.9 Cough, unspecified; K44.9 Diaphragmatic hernia without obstruction or gangrene; J90 Pleural effusion, not elsewhere classified
CPT/HCPCS: 71250

== ENCOUNTER 2023-03-22 10:27 | Outpatient (CLI) | payer MEDICARE, OTHER, SELFPAY ==
[2023-03-22 10:46] LABS: Hematocrit 40.1 % (37.0-47.0); Hemoglobin 12.3 g/dL (12.0-15.0); Mean Corpuscular HGB Conc 30.7 g/dl (32-36); Mean Corpuscular Hemoglobin 25.7 pg (26-34); Mean Corpuscular Volume 83.9 fl (80-100); Platelet Count Result 356 k/mm3 (150-375); Red Blood Count 4.78 M/mm3 (4.2-5.4); Red Cell Distribution Width 14.3 % (11.5-14.5); White Blood Count 9.2 K/mm3 (4.5-10.0)
[2023-03-22 11:08] LABS: Alanine Aminotransferase 12 U/L (6-35); Albumin Level 3.9 g/dL (3.5-5.1); Alkaline Phosphatase 94 U/L (38-126); Anion Gap 8 mmol/L (8-16); Aspartate Amino Transferase 20 U/L (14-36); Bilirubin,Total 0.8 mg/dL (0.2-1.3); Blood Urea Nitrogen 8 mg/dL (7-17); Calcium 8.7 mg/dL (8.4-10.2); Carbon Dioxide 27 mmol/L (22-30); Chloride 100 mmol/L (98-107); Cholesterol 189 mg/dL (0-200); Estimated Glomerular Filt Rate > 60; Glucose 104 mg/dL (65-110); HDL Direct 34 mg/dL; Potassium 4.3 mmol/L (3.4-5.0); Sodium 135 mmol/L (137-145); Triglycerides 144 mg/dL (<150)
[2023-03-22 11:18] LABS: LDL Cholesterol Direct 106 mg/dL
[2023-03-27 15:20] LABS: Red Blood Cell Folate 604 ng/mL RBC (>280)
== END 2023-03-22 10:28 | disposition home or self-care (01) ==
PROVIDERS: PCP Family Medicine; Visit Provider Student in an Organized Health Care Education/Training Program
DX: R53.83 Other fatigue (principal); E78.2 Mixed hyperlipidemia; I48.91 Unspecified atrial fibrillation; F03.90 Unspecified dementia, unspecified severity, without behavioral disturbance, psychotic disturbance, mood disturbance, and anxiety
CPT/HCPCS: 36415; 80053; 80061; 82607; 82747; 84443; 85027

== ENCOUNTER 2023-03-30 13:25 | Outpatient (CLI) | payer MEDICARE, MEDICAID, SELFPAY ==
--- NOTE | ~2023-03-30 | MR_ITS ---
MRI of the brain Clinical History: Amnesia Technique: Axial and sagittal T1-weighted images were acquired. These were followed by axial T2-weigh cirilo, diffusion weighted, gradient, and FLAIR images. COMPARISON: 03/21/2019 Findings: There is no acute infarct, intracranial hemorrhage, or mass lesion. There is mild to modera te chronic microvascular change in the periventricular white matter bilaterally. Ventricles and subarachnoid spaces are unremarkable. Orbits are unremarkable. Paranasal sinuses and l eft mastoid air cells are clear. There is fluid in right mastoid air cells. Major intracranial flow v oids are intact. Sagittal midline structures are intact. IMPRESSION: No acute intracranial abnormality. Mild to moderate chronic microvascular ischemic change. Fluid in the right mastoid air cells. Reviewed, dictated and finalized at location .
== END 2023-03-30 13:26 | disposition home or self-care (01) ==
PROVIDERS: PCP Family Medicine; Visit Provider Student in an Organized Health Care Education/Training Program
DX: R41.3 Other amnesia (principal)
CPT/HCPCS: 70551

== ENCOUNTER 2023-04-05 13:01 | Outpatient (CLI) | payer MEDICARE, MEDICAID, SELFPAY ==
--- NOTE | ~2023-04-05 | CT_ITS ---
CT Scan of the Chest without Contrast: Clinical Indication: Pleural effusion, tree-in-bud opacities Technique: Contiguous sections were acquired throughout the chest without intravenous contrast. Dose reduction technique was used on this scan by utilizing automated exposure control and iterative recon struction technique. The dose-length product (DLP) was 121.11 mGy-cm. COMPARISON: 02/21/2023 Findings: There is no evidence of any significant mediastinal, hilar or axillary lymphadenopathy. Densely calci fied AP window lymph node noted. There are atherosclerotic and calcifications of the aorta and aguilar ry arteries. Large hiatal hernia present. No pericardial effusion. Small left pleural effusion is present, similar to prior exam. No right pleural effusion. There is patchy consolidation and tree-in-bud opacities in the left upper lobe with apparent left upp er lobe volume loss. There are additional tree-in-bud opacities and irregular subcentimeter nodular i s in the right upper lobe, with probable chronic atelectasis or scarring in the right middle lobe. Images through the upper abdomen reveal calcified splenic granulomas. Impression: Patchy areas of tree-in-bud opacity and consolidation, worst in the left upper lobe, similar to prior exam. Findings suggest acute on chronic small airways infectious process/pneumonia. Probable associa cirilo left upper lobe volume loss. Small left pleural effusion, similar to prior exam. Large hiatal hernia, unchanged. Reviewed, dictated and finalized at [facility]. Impression: Patchy areas of tree-in-bud opacity and consolidation, worst in the left upper lobe, similar to prior exam. Findings suggest acute on chronic small airways in fectious process/pneumonia. Probable associated left upper lobe volume loss. Small left pleural effusion, similar to prior exam. Large hiatal hernia, unchanged.
== END 2023-04-05 13:02 | disposition home or self-care (01) ==
PROVIDERS: PCP Family Medicine; Visit Provider Physician Assistant
DX: J90 Pleural effusion, not elsewhere classified (principal); R91.8 Other nonspecific abnormal finding of lung field
CPT/HCPCS: 71250

== ENCOUNTER 2023-05-25 05:01 | Outpatient (CLI) | payer MEDICARE, MEDICAID, SELFPAY ==
--- NOTE | 2023-05-16 14:17 | PC.NURSE ---
Pre Radiology instructions Report to the outpatient angel nelson on date _05/25/23____ at time __0830 for procedure Time: _1030___ YOU MAY BE MONITORED AT HOSPITAL FOR UP TO 4 HOURS AFTER YOUR PROCEDURE. A visitor will be allowed to accompany the patient into the hospital. You and your visitor will be asked to self-screen and do not enter if you have any COVID symptoms. A mask is OPTIONAL within the hospital. Patients are to have no food or drink 6 hours prior to procedure time Driving will be restricted after the procedure, you must have a person to drive you home. Labs will be drawn in preop area and once reviewed, you will be taken to radiology area for procedure. When the procedure is completed, you will be taken to outpatient where you will be monitored for several hours. You may have one visitor in this area. Other than holding anti-coagulants, patient may take other medication(s) as scheduled. Prior to your appointment date patients are instructed to hold anti-coagulants after discussing with ordering provider to stop. If unable to discontinue anti-coagulants please notify radiologist. ? No aspirin or warfarin (Coumadin) for 7 days prior to the procedure. ? No clopidogrel (Plavix), ticagrelor (Brilinta), prasugrel (Effient) or dabigatran (Pradaxa) for 5 days prior to the procedure. ? No rivaroxaban (Xarelto), apixaban (Eliquis), dipyridamole (Aggrenox or Persantine) or cilostazol (Pletal) for 2 days prior to the procedure. Medications to discontinue per physician: __ELIQUIS 2 DAYS Date to take last dose: _05/23/23 Please leave all valuables, including medications, at home the day of procedure. The hospital will not accept responsibility for valuables. Wear comfortable, loose fitting clothing.? Follow any additional instructions given to you from ordering provider. Telephone instructions given to __PT'S DAUGHTER HOLA AND FAXED TO [facility] and asked if any additional questions and then verbalized understanding. Patient advised to call scheduling provider office or registration scheduling [phone] if any additional questions.
[2023-05-16 14:25] VITALS: BMI 20.2
[2023-05-25] VITALS (8 sets, daily range): BP systolic 118–155; BP diastolic 50–65; PULSE 42–49; RESP 15–18; TEMP 36.7; O2SAT 98–100
--- NOTE | ~2023-05-25 | XR_ITS ---
EXAMINATION: [id number] DATE: 05/25/2023 10:54 INDICATION: Left pleural effusion status post thoracentesis. TECHNIQUE: A single frontal view of the chest was obtained. COMPARISON: Chest 2 views 02/11/2022, chest CT 04/05/2023 FINDINGS: There is chronic volume loss of left hemithorax. There are mild airspace opacities in right midlung zone. There are airspace opacities in all left lung zones with a peripheral predominance wit h sparing of the lung apex. No pleural effusion or pneumothorax. Calcified left hilar lymph nodes are consistent with old granulomatous disease. The heart size is normal. There is a moderate-sized hiata l hernia. IMPRESSION: 1. 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 2. Moderate-sized hiatal hernia. Reviewed, dictated and finalized at location A. IMPRESSION: 1. Multifocal lung disease, left worse than right with worsening from 02/11/2022 , consistent with chronic pneumonia. 2. Moderate-sized hiatal hernia.
--- NOTE | ~2023-05-25 | US_ITS ---
EXAMINATION: US thoracentesis DATE: 05/25/2023 11:05 INDICATION: pleural effusion TECHNIQUE: The procedure and its risks, benefits, and alternatives were discussed with the patient. P otential risks discussed included bleeding, infection, and pneumothorax. The patient understood the r isks and agreed to proceed. The skin was prepped and draped in sterile fashion. 1% lidocaine was used for local anesthesia. Under ultrasound guidance, a 5 Fr catheter with trochar was advanced into the left pleural effusion. Fluid was aspirated. The catheter was removed, and a dressing was applied. The re were no immediate complications. FINDINGS: Ultrasound images demonstrate a left pleural effusion and the catheter within the fluid. IMPRESSION: 1. Successful ultrasound-guided thoracentesis yielding 100 mL of clear, yellow fluid. Reviewed, dictated and finalized at location A.
[2023-05-25 09:02] LABS: Platelet Count Result 382 k/mm3 (150-375)
[2023-05-25 09:13] LABS: Prothrombin Time 13.8 Seconds (11.1-14.7)
[2023-05-25 13:57] LABS: Pleural fluid source Pleural fluid
[2023-05-25 13:59] LABS: Appearance Pleural Fluid Hazy (Clear); Color Pleural Fluid Yellow (Colorless)
[2023-05-25 14:00] LABS: Lymphocytes Pleural Fluid 67 %; Macrophages Pleural Fluid 7 %; Mesothelial Cells Pleural Flui 3 %; Monocytes Pleural Fluid 10 %; Neutrophils Pleural Fluid 12 % (0-25)
[2023-05-25 14:02] LABS: Other Cells Pleural Fluid 1 %
[2023-05-30 05:52] LABS: LDH Pleural Fluid 123 U/L; Total Protein Pleural Fluid 4.2 g/dL
[2023-06-01 21:17] LABS: Albumin Pleural Fluid 2.1 g/dL
[2023-06-03 07:32] LABS: Amylase, Pleural Fluid 19
[2023-06-03 07:34] LABS: Adenosine Deaminase Pleural Fl 14.4
== END 2023-05-25 13:05 | disposition home or self-care (01) ==
PROVIDERS: PCP Family Medicine; Referring Provider Internal Medicine Pulmonary Disease; Visit Provider Radiology Diagnostic Radiology
DX: J90 Pleural effusion, not elsewhere classified (principal); R07.9 Chest pain, unspecified; K44.9 Diaphragmatic hernia without obstruction or gangrene
CPT/HCPCS: 32555; 36415; 82042; 82150; 83615; 84157; 84311; 84478; 85049; 85610; 89051

== ENCOUNTER 2023-06-14 10:27 | Outpatient (RCR) | payer MEDICARE, MEDICAID, SELFPAY | END 2023-08-08 23:59 | disposition home or self-care (01) | LOC: ANHLAB 10:27 | PROVIDERS: PCP Family Medicine; Visit Provider Internal Medicine Pulmonary Disease | DX: R91.8 Other nonspecific abnormal finding of lung field (principal) | CPT/HCPCS: 87015; 87070; 87106; 87116; 87147; 87181; 87186; 87205; 87206 ==

== ENCOUNTER 2023-07-21 01:41 | Day surgery (SDC) | payer MEDICARE, MEDICAID, SELFPAY ==
[2023-07-15 13:08] VITALS: BMI 19.4
--- NOTE | 2023-07-20 15:47 | PM.HPGS ---
History of Present Illness History of Present Illness Consent: Risks, benefits, and alternatives have been discussed and questions answered. Patient agrees to proceed with procedure. Chief complaint: Dysphagia Narrative: Candie Monroy is a 83 year old female who is having increasing difficulty with dysphagia. About 2 years ago she had esophageal dilatation twice and could only be dilated up to about 15 mm. per her daughter, the patient is a Living on soup and also has mechanical soft diet. Review of Systems Review of Systems: All systems reviewed & are unremarkable except as noted in HPI and below PMFSH Past Medical History Medical History Afib Arthritis Asthma Atrial fibrillation Metz palsy right sided Body mass index [BMI] 21.0-21.9, adult (02/19/19) Cataracts, bilateral Chest pain Dementia early Dementia, unspecified, without behavioral disturbance Dysphagia Esophageal dilatation x2 Esophageal stricture Last EGD with dilatation was in 09/[address] Bonner. Former smoker Fracture closed, clavicle, shaft Gastro-esophageal reflux disease without esophagitis Heart murmur Hiatal hernia History of atrial fibrillation HTN (hypertension) boderline Hyperglycemia Hyperlipidemia boderline Hypothyroid Left arm pain Lumbar radiculopathy Lung cancer Status post left lower lobectomy [place] [address] Austin Adkins. Malignant neoplasm of lower lobe of left lung Malignant neoplasm of lung Memory loss Mild dementia Mitral valve disease Mild MR by echo September 2019. Patient of Dr. Chaz Ortiz. Rib pain on left side Screening for cholesterol level Seasonal allergies Seborrheic keratosis Severe sepsis Hospitalized for E coli septicemia September 2019 SOB (shortness of breath) Surgical History Surgical History H/O: hysterectomy History of appendectomy 1959. History of bladder suspension procedure History of breast biopsy With benign pathology. History of cataract surgery Hx of cataract removal with insertion of prosthetic lens Status post lobectomy of lung Left lower lobectomy for lung cancer in 2013. Family History Family History Father Cerebrovascular accident Grandparent Family history of malignant neoplasm Mother Unknown family medical history Social History Social History Social History: The patient lives in [place], [place] with her significant other, Mike. She designates her daughter, Katya Foy, as her surrogate decision maker and she wishes to be a full code. She has at the most a 5 pack year smoking history and quit in her 20s or 30s. No alcohol or drug use. Smoking packs per day: 0.5 Smoking cigarettes per day: 10.0 Smoking status: Never smoker Tobacco type: cigarettes Alcohol intake: never Drinks per week: 1 Substance use: never Substance use type: does not use Lack of Transportation: No Lack of Food: Never True Current Housing: I Have Housing Concerned About Future Housing: No Difficulty Paying Gas/Electric Bills: No Difficulty Paying for Meds: No Currently Unemployed: No Education: High School Diploma/GED Difficulty w/ Childcare or Family Care: No Living arrangements: long-term Additional living arrangements comments: SIG. OTHER Occupation/Education: retired Gender identity (if verbalized by the patient): Female Spiritual care concerns: No Agree to blood products: Yes Meds Home Medications and Allergies Home Medications Medication Instructions Recorded Confirmed Type apixaban 5 mg tablet (Eliquis) 5 mg PO Q12HR 30 days #60 tabs 10/01/19 07/15/23 Rx sotalol 80 mg tablet 40 mg PO BID 11/06/19 07/15/23 History memantine 10 mg tablet See Rx Instructions .Route 10/01/21 07/15/23 Rx .COMPLE
[2023-07-21 13:37] VITALS: BP 147/58; PULSE 50; RESP 20; TEMP 36.2; O2SAT 99
[2023-07-21] MEDS: LACTATED RINGERS 1,000 ML 150 ML IV CONT (13:45)
--- NOTE | 2023-07-21 13:46 | WPDANESEPPF ---
Anes - Initial Pre Proc Eval Procedure: Operation Date: 07/21/23 15:00 Proposed Procedures p Esophagogastroduodenoscopy - Lorne Bonner MD Date/Time: 07/21/23 13:46 Surgeon: Lorne Bonner MD Pre Op Diagnosis: Dysphagia Patient Data Age: 83 Gender: F Height: 1.63 m Weight: 51.5 kg Last Vital Signs Temp 97.1 F L 07/21/23 13:37 Pulse 50 L 07/21/23 13:37 Resp 20 07/21/23 13:37 BP 147/58 H 07/21/23 13:37 Pulse Ox 99 07/21/23 13:37 O2 Del Method Room Air 07/21/23 13:37 Allergies Allergy/AdvReac Type Severity Reaction Status Date / Time Sulfa (Sulfonamide Allergy Severe Hives Verified 07/21/23 13:35 Antibiotics) adhesive tape AdvReac Itching/LANNY Verified 07/21/23 13:35 H Home Medications Medication Instructions Recorded Confirmed Type apixaban 5 mg tablet (Eliquis) 5 mg PO Q12HR 30 days #60 tabs 10/01/19 07/21/23 Rx sotalol 80 mg tablet 40 mg PO BID 11/06/19 07/21/23 History memantine 10 mg tablet See Rx Instructions .Route 10/01/21 07/21/23 Rx .COMPLEX #180 tabs tiotropium bromide 2.5 2 inh inhalation QAM #4 grams 02/15/23 07/21/23 Rx mcg/actuation mist for inhalation (Spiriva Respimat) pantoprazole 40 mg tablet,delayed 40 mg PO QAM 06/14/23 07/21/23 History release albuterol sulfate 90 mcg/actuation 2 puff inhalation PRN shortness of 07/15/23 History aerosol inhaler (Ventolin HFA) breath or wheezing benzonatate 100 mg capsule 100 mg PO TID PRN Cough 07/15/23 07/21/23 History cyanocobalamin (vitamin B-12) 1,000 mcg PO DAILY 07/15/23 07/21/23 History 1,000 mcg tablet metoclopramide HCl 10 mg tablet 5 mg PO BIDWMEAL 07/15/23 07/21/23 History (Reglan) Patient hx anesthesia problems: none Family hx anesthesia problems: none Results Review: All pre-operative results and documents have been reviewed as part of the pre-operative evaluation. [facility] Past Medical History Medical History Afib Arthritis Asthma Atrial fibrillation Metz palsy right sided Body mass index [BMI] 21.0-21.9, adult (02/19/19) Cataracts, bilateral Chest pain Dementia early Dementia, unspecified, without behavioral disturbance Dysphagia Esophageal dilatation x2 Esophageal stricture Last EGD with dilatation was in 09/[address] Bonner. Former smoker Fracture closed, clavicle, shaft Gastro-esophageal reflux disease without esophagitis Heart murmur Hiatal hernia History of atrial fibrillation HTN (hypertension) boderline Hyperglycemia Hyperlipidemia boderline Hypothyroid Left arm pain Lumbar radiculopathy Lung cancer Status post left lower lobectomy [place] [address] Austin Adkins. Malignant neoplasm of lower lobe of left lung Malignant neoplasm of lung Memory loss Mild dementia Mitral valve disease Mild MR by echo September 2019. Patient of Dr. Chaz Ortiz. Rib pain on left side Screening for cholesterol level Seasonal allergies Seborrheic keratosis Severe sepsis Hospitalized for E coli septicemia September 2019 SOB (shortness of breath) Surgical History Surgical History H/O: hysterectomy History of appendectomy 1959. History of bladder suspension procedure History of breast biopsy With benign pathology. History of cataract surgery Hx of cataract removal with insertion of prosthetic lens Status post lobectomy of lung Left lower lobectomy for lung cancer in 2013. Family History Family History Father Cerebrovascular accident Grandparent Family history of malignant neoplasm Mother Unknown family medical history Social History Social History Social History: The patient lives in [place], [place] with her significant other, Mike. She designates her daughter, Katya Foy, as her surrogate decision maker and she
[2023-07-21 14:02] VITALS: BP 143/72; PULSE 63; RESP 23; O2SAT 99
[2023-07-21 14:12] VITALS: BP 133/79; PULSE 62; RESP 21; O2SAT 99
[2023-07-21 14:22] VITALS: BP 146/95; PULSE 58; RESP 20; O2SAT 99
== END 2023-07-21 14:33 | disposition home or self-care (01) ==
PROVIDERS: PCP Family Medicine; Visit Provider Internal Medicine Gastroenterology
PROC: 0DJ08ZZ Inspection of Upper Intestinal Tract, Via Natural or Artificial Opening Endoscopic (ICD-10-PCS; CPT 43235; principal; 2023-07-21 15:00)
DX: K22.2 Esophageal obstruction (principal); K44.9 Diaphragmatic hernia without obstruction or gangrene; K21.9 Gastro-esophageal reflux disease without esophagitis; I48.91 Unspecified atrial fibrillation; F03.90 Unspecified dementia, unspecified severity, without behavioral disturbance, psychotic disturbance, mood disturbance, and anxiety; I10 Essential (primary) hypertension; J45.909 Unspecified asthma, uncomplicated; Z85.118 Personal history of other malignant neoplasm of bronchus and lung; Z90.2 Acquired absence of lung [part of]; Z79.01 Long term (current) use of anticoagulants; Z79.51 Long term (current) use of inhaled steroids; Z87.891 Personal history of nicotine dependence
CPT/HCPCS: 43249; C1726; J2704; J7120

== ENCOUNTER 2023-08-22 14:14 | Outpatient (CLI) | payer MEDICARE, MEDICAID, SELFPAY ==
--- NOTE | ~2023-08-22 | XR_ITS ---
XR chest 2V DATE: 08/22/2023 14:36 INDICATION: Infiltrate follow-up TECHNIQUE: 2 views, PA and lateral projections COMPARISON: 05/25/2023 portable AP chest 04/05/2023 CT chest FINDINGS: Cardiomegaly. Aortic calcification. Large hiatal hernia. There is volume loss of the left lung with leftward shift of heart and mediastinum. There is patchy infiltrate in the left mid to upper and mid and lower lung zones and mild blunting of left costophrenic angle suggesting mild left pleural effusion. Minimal infiltrate or atelectasis in the right mid and lower lung zone. Diffuse osteopenia. Thoracic and lumbar scoliosis. IMPRESSION: Left lung infiltrate and atelectasis and small left pleural effusion; the left lung infil trates are improved compared to 05/25/2023 Large hiatal hernia Cardiomegaly Aortic atherosclerosis Osteopenia. Reviewed, dictated and finalized at location [facility]. IMPRESSION: Left lung infiltrate and atelectasis and small left pleural effusio n; the left lung infiltrates are improved compared to 05/25/2023 Large hiatal hernia Cardiomegaly Aortic atherosclerosis Osteopenia.
== END 2023-08-22 14:15 | disposition home or self-care (01) ==
PROVIDERS: PCP Family Medicine; Visit Provider Internal Medicine Critical Care Medicine
DX: R93.89 Abnormal findings on diagnostic imaging of other specified body structures (principal); Z85.118 Personal history of other malignant neoplasm of bronchus and lung; K44.9 Diaphragmatic hernia without obstruction or gangrene; I70.0 Atherosclerosis of aorta; M85.88 Other specified disorders of bone density and structure, other site; R91.8 Other nonspecific abnormal finding of lung field; I51.7 Cardiomegaly
CPT/HCPCS: 71046

== ENCOUNTER 2023-10-19 00:51 | Day surgery (SDC) | payer MEDICARE, MEDICAID, SELFPAY ==
[2023-10-10 14:41] VITALS: BMI 19.5
--- NOTE | 2023-10-17 10:00 | SUR.PREOP ---
Patient called regarding upcoming procedure. Katya PAZ did not answer- message left with arrival time and phone number to call if they have any questions.
--- NOTE | 2023-10-18 16:29 | PM.HPGS ---
History of Present Illness History of Present Illness Consent: Risks, benefits, and alternatives have been discussed and questions answered. Patient agrees to proceed with procedure. Chief complaint: Peptic ulcer site unspecified Narrative: Candie Monroy is a 83 year old female with dysphagia. Two months ago she had esophageal dilatation of the stricture up to 15 mm. Review of Systems Review of Systems: All systems reviewed & are unremarkable except as noted in HPI and below PMFSH Past Medical History Medical History Afib Arthritis Asthma Atrial fibrillation Metz palsy right sided Body mass index [BMI] 21.0-21.9, adult (02/19/19) Cataracts, bilateral Chest pain Dementia early Dementia, unspecified, without behavioral disturbance Dysphagia Esophageal dilatation x2 Esophageal stricture Last EGD with dilatation was in 09/[address] Bonner. Former smoker Fracture closed, clavicle, shaft Gastro-esophageal reflux disease without esophagitis Heart murmur Hiatal hernia History of atrial fibrillation HTN (hypertension) boderline Hyperglycemia Hyperlipidemia boderline Hypothyroid Left arm pain Lumbar radiculopathy Lung cancer Status post left lower lobectomy [place] [address] Austin Adkins. Malignant neoplasm of lower lobe of left lung Malignant neoplasm of lung Memory loss Mild dementia Mitral valve disease Mild MR by echo September 2019. Patient of Dr. Chaz Ortiz. Rib pain on left side Screening for cholesterol level Seasonal allergies Seborrheic keratosis Severe sepsis Hospitalized for E coli septicemia September 2019 SOB (shortness of breath) Surgical History Surgical History H/O: hysterectomy History of appendectomy 1959. History of bladder suspension procedure History of breast biopsy With benign pathology. History of cataract surgery Hx of cataract removal with insertion of prosthetic lens Status post lobectomy of lung Left lower lobectomy for lung cancer in 2013. Family History Family History Father Cerebrovascular accident Grandparent Family history of malignant neoplasm Mother Unknown family medical history Social History Social History Social History: The patient lives in [place], [place] with her significant other, Mike. She designates her daughter, Katya Foy, as her surrogate decision maker and she wishes to be a full code. She has at the most a 5 pack year smoking history and quit in her 20s or 30s. No alcohol or drug use. Smoking packs per day: 0.5 Smoking cigarettes per day: 10.0 Smoking status: Never smoker Tobacco type: cigarettes Alcohol intake: never Drinks per week: 1 Substance use: never Substance use type: does not use Lack of Transportation: No Lack of Food: Never True Current Housing: I Have Housing Concerned About Future Housing: No Difficulty Paying Gas/Electric Bills: No Difficulty Paying for Meds: No Currently Unemployed: No Education: High School Diploma/GED Difficulty w/ Childcare or Family Care: No Living arrangements: intermediate Additional living arrangements comments: SIG. OTHER Occupation/Education: retired Gender identity (if verbalized by the patient): Female Spiritual care concerns: No Agree to blood products: Yes Meds Home Medications and Allergies Home Medications Medication Instructions Recorded Confirmed Type apixaban 5 mg tablet (Eliquis) 5 mg PO Q12HR 30 days #60 tabs 10/01/19 10/19/23 Rx sotalol 80 mg tablet 40 mg PO BID 11/06/19 10/10/23 History memantine 10 mg tablet See Rx Instructions .Route 10/01/21 10/10/23 Rx .COMPLEX #180 tabs tiotropium bromide 2.5 2 inh inhalation QAM #4 grams 02/15/23 10/10/23 Rx mcg/actuation mist for inhalation
[2023-10-19 11:19] VITALS: BP 152/61; PULSE 52; RESP 18; TEMP 36.8; O2SAT 99
--- NOTE | 2023-10-19 12:07 | WPDANESEPPF ---
Anes - Initial Pre Proc Eval Procedure: Operation Date: 10/19/23 09:00 Proposed Procedures p Esophagogastroduodenoscopy - Lorne Bonner MD Date/Time: 10/19/23 12:07 Surgeon: Lorne Bonner MD Pre Op Diagnosis: Peptic ulcer site unspecified Patient Data Age: 83 Gender: F Height: 1.63 m Weight: 53.3 kg Last Vital Signs Temp 98.2 F 10/19/23 11:19 Pulse 52 L 10/19/23 11:19 Resp 18 10/19/23 11:19 BP 152/61 H 10/19/23 11:19 Pulse Ox 99 10/19/23 11:19 O2 Del Method Room Air 10/19/23 11:19 Allergies Allergy/AdvReac Type Severity Reaction Status Date / Time Sulfa (Sulfonamide Allergy Severe Hives Verified 10/19/23 11:17 Antibiotics) adhesive tape AdvReac Itching/LANNY Verified 10/19/23 11:17 H Home Medications Medication Instructions Recorded Confirmed Type apixaban 5 mg tablet (Eliquis) 5 mg PO Q12HR 30 days #60 tabs 10/01/19 10/19/23 Rx sotalol 80 mg tablet 40 mg PO BID 11/06/19 10/10/23 History memantine 10 mg tablet See Rx Instructions .Route 10/01/21 10/10/23 Rx .COMPLEX #180 tabs tiotropium bromide 2.5 2 inh inhalation QAM #4 grams 02/15/23 10/10/23 Rx mcg/actuation mist for inhalation (Spiriva Respimat) pantoprazole 40 mg tablet,delayed 40 mg PO QAM 06/14/23 10/10/23 History release albuterol sulfate 90 mcg/actuation 2 puff inhalation BID PRN 07/15/23 10/10/23 History aerosol inhaler (Ventolin HFA) shortness of breath or wheezing benzonatate 100 mg capsule 100 mg PO TID PRN Cough 07/15/23 10/10/23 History cyanocobalamin (vitamin B-12) 1,000 mcg PO DAILY 07/15/23 10/10/23 History 1,000 mcg tablet Patient hx anesthesia problems: none Family hx anesthesia problems: none Results Review: All pre-operative results and documents have been reviewed as part of the pre-operative evaluation. [facility] Past Medical History Medical History Afib Arthritis Asthma Atrial fibrillation Metz palsy right sided Body mass index [BMI] 21.0-21.9, adult (02/19/19) Cataracts, bilateral Chest pain Dementia early Dementia, unspecified, without behavioral disturbance Dysphagia Esophageal dilatation x2 Esophageal stricture Last EGD with dilatation was in 09/[address] Bonner. Former smoker Fracture closed, clavicle, shaft Gastro-esophageal reflux disease without esophagitis Heart murmur Hiatal hernia History of atrial fibrillation HTN (hypertension) boderline Hyperglycemia Hyperlipidemia boderline Hypothyroid Left arm pain Lumbar radiculopathy Lung cancer Status post left lower lobectomy [place] [address] Austin Adkins. Malignant neoplasm of lower lobe of left lung Malignant neoplasm of lung Memory loss Mild dementia Mitral valve disease Mild MR by echo September 2019. Patient of Dr. Chaz Ortiz. Rib pain on left side Screening for cholesterol level Seasonal allergies Seborrheic keratosis Severe sepsis Hospitalized for E coli septicemia September 2019 SOB (shortness of breath) Surgical History Surgical History H/O: hysterectomy History of appendectomy 1959. History of bladder suspension procedure History of breast biopsy With benign pathology. History of cataract surgery Hx of cataract removal with insertion of prosthetic lens Status post lobectomy of lung Left lower lobectomy for lung cancer in 2013. Family History Family History Father Cerebrovascular accident Grandparent Family history of malignant neoplasm Mother Unknown family medical history Social History Social History Social History: The patient lives in [place], [place] with her significant other, Mike. She designates her daughter, Katya Foy, as her surrogate decision maker and she wishes to be a full code. She has at the most a 5 pack ye
[2023-10-19] MEDS: LACTATED RINGERS 1,000 ML 150 ML IV CONT (12:08)
[2023-10-19 12:57] VITALS: BP 82/38; PULSE 54; RESP 18; O2SAT 100
[2023-10-19 13:07] VITALS: BP 101/51; PULSE 54; RESP 20; O2SAT 99
[2023-10-19 13:17] VITALS: BP 109/43; PULSE 50; RESP 20; O2SAT 98
[2023-10-19 13:27] VITALS: BP 145/57; PULSE 50; RESP 22; O2SAT 99
--- NOTE | 2023-10-19 13:48 | SUR.PHASEII ---
report called to domenico at pt's facility, states understanding, discharge papers and instructions also given to pt's daughter at bedside, daughter states understanding and has no further questions.
== END 2023-10-19 13:49 | disposition home or self-care (01) ==
PROVIDERS: PCP Family Medicine; Visit Provider Internal Medicine Gastroenterology
PROC: 0DJ08ZZ Inspection of Upper Intestinal Tract, Via Natural or Artificial Opening Endoscopic (ICD-10-PCS; CPT 43235; principal; 2023-10-19 09:00)
DX: R13.10 Dysphagia, unspecified (principal); K22.2 Esophageal obstruction; K44.9 Diaphragmatic hernia without obstruction or gangrene; I10 Essential (primary) hypertension; R73.9 Hyperglycemia, unspecified; E78.5 Hyperlipidemia, unspecified; E03.9 Hypothyroidism, unspecified; K21.9 Gastro-esophageal reflux disease without esophagitis; J45.909 Unspecified asthma, uncomplicated; F03.90 Unspecified dementia, unspecified severity, without behavioral disturbance, psychotic disturbance, mood disturbance, and anxiety; Z79.01 Long term (current) use of anticoagulants; Z79.51 Long term (current) use of inhaled steroids; Z87.19 Personal history of other diseases of the digestive system; Z87.891 Personal history of nicotine dependence; Z86.79 Personal history of other diseases of the circulatory system; Z85.118 Personal history of other malignant neoplasm of bronchus and lung; Z90.2 Acquired absence of lung [part of]; Z82.49 Family history of ischemic heart disease and other diseases of the circulatory system; Z80.9 Family history of malignant neoplasm, unspecified
CPT/HCPCS: 43239; 43249; C1726; J2704; J7120

== ENCOUNTER 2024-11-18 18:43 | Emergency (ER) | payer MEDICARE, OTHER, SELFPAY ==
--- NOTE | ~2024-11-18 | CT_ITS ---
History: Fall PROCEDURE: CT head without contrast. COMPARISON: None TECHNIQUE: Axial imaging of the head performed from the skull base to the vertex without IV contrast. Sagittal a nd coronal reformations obtained. DLP: 605 mGy-cm FINDINGS: The ventricles are dilated. The dilatation of the ventricles is proportional to the degree of sulcal prominence, not uncommon in the senescent brain. Decreased attenuation is identified within the periventricular white matter, likely secondary to micr ovascular ischemic disease, in a patient of this age. There is no mass, mass effect or midline shift. There is no abnormal extra-axial fluid collection or intracranial hemorrhage. Visualized paranasal sinuses are clear. The mastoid air cells are well aerated. No acute displaced fractures within the overlying cranium. Left posterior occipital scalp hematoma. Impression: No acute intracranial hemorrhage or suspicious mass effect. Reviewed, dictated and finalized at location A. CTOR OF CRITICAL CARE Impression: No acute intracranial hemorrhage or suspicious mass effect.
--- NOTE | ~2024-11-18 | CT_ITS ---
History: Fall PROCEDURE: CT cervical spine without intravenous contrast. COMPARISON: None TECHNIQUE: Multiple contiguous axial images of the cervical spine were performed without the administration of i ntravenous contrast. DLP: 99 mGy-cm FINDINGS: Straightening and slight reversal of the normal curvature of the cervical spine is identified, likely muscular in origin. No acute fractures are present. Moderate degenerative disease is identified with ankylosis, disc space narrowing, endplate changes an d vacuum phenomena. Significant facet hypertrophy is also noted. The bilateral lung apices are unremarkable. No soft tissue abnormality is present. The airway is unremarkable. Impression: Straightening and slight reversal of the normal curvature of the cervical spine, likely muscular in o rigin. No acute fracture. Reviewed, dictated and finalized at location A. INSPECTOR Impression: Straightening and slight reversal of the normal curvature of the cervical spine , likely muscular in origin. No acute fracture.
[2024-11-18 18:52] VITALS: BP 173/91; PULSE 65; RESP 18; TEMP 36.4; O2SAT 96
--- NOTE | 2024-11-18 19:05 | ED_ITS ---
HPI - Fall General Chief Complaint: Fall Stated Complaint: fall, on eliquis Time Seen by Provider: 11/18/24 18:48 Source: patient Mode of arrival: ambulatory Limitations: no limitations History of Present Illness HPI Narrative: This is a 89-year-old female who presents to the ED via EMS from local long term for chief complaint of a fall while trying to turn the light off this evening. Patient is alert oriented x2, at baseline with history of dementia. Laceration was noted by EMS and reported to be pulsatile. Patient is unsure of how she fell. She denies any further sites of pain. Related Data Home Medications ?Medication ?Instructions ?Recorded ?Confirmed ?Last Taken ?Type sotalol 80 mg tablet 40 mg PO BID 11/06/19 10/31/24 10/19/23 07:00 History pantoprazole 40 mg tablet,delayed 40 mg PO QAM 06/14/23 10/31/24 10/18/23 History release albuterol sulfate 90 mcg/actuation 2 puff inhalation BID PRN 07/15/23 10/31/24 10/18/23 History aerosol inhaler (Ventolin HFA) shortness of breath or wheezing benzonatate 100 mg capsule 100 mg PO TID PRN Cough 07/15/23 10/31/24 10/18/23 History cyanocobalamin (vitamin B-12) 1,000 mcg PO DAILY 07/15/23 10/31/24 10/18/23 History 1,000 mcg tablet Allergies Allergy/AdvReac Type Severity Reaction Status Date / Time Sulfa (Sulfonamide Allergy Severe Hives Verified 05/10/24 13:06 Antibiotics) adhesive tape AdvReac Itching/LANNY Verified 05/10/24 13:06 H Review of Systems Review of Systems: All systems as dictated in HPI [facility] Past Medical History Medical History (Updated 11/19/24 @ 00:00 by Background Daemon) Dementia of Alzheimer's type with behavioral disturbance Dysphagia Malignant neoplasm of lung Dementia, unspecified, without behavioral disturbance SOB (shortness of breath) Seborrheic keratosis Screening for cholesterol level Rib pain on left side Memory loss Malignant neoplasm of lower lobe of left lung Lumbar radiculopathy Left arm pain Hyperglycemia History of atrial fibrillation Hiatal hernia Gastro-esophageal reflux disease without esophagitis Former smoker Chest pain Body mass index [BMI] 21.0-21.9, adult (02/19/19) Afib Metz palsy right sided Fracture closed, clavicle, shaft Arthritis Hypothyroid Esophageal dilatation x2 HTN (hypertension) boderline Heart murmur Dementia early Seasonal allergies Cataracts, bilateral Atrial fibrillation Lung cancer Status post left lower lobectomy [place] [address] Austin Akdins. Asthma Mitral valve disease Mild MR by echo September 2019. Patient of Dr. Chaz Ortiz. Esophageal stricture Last EGD with dilatation was in 09/[address] Bonner. Hyperlipidemia boderline Mild dementia Severe sepsis Hospitalized for E coli septicemia September 2019 Surgical History Surgical History H/O: hysterectomy History of bladder suspension procedure Hx of cataract removal with insertion of prosthetic lens History of appendectomy 1959. History of breast biopsy With benign pathology. History of cataract surgery Status post lobectomy of lung Left lower lobectomy for lung cancer in 2013. Family History Family History Father Cerebrovascular accident Grandparent Family history of malignant neoplasm Mother Unknown family medical history Social History Social History Social History: The patient lives in [place], [place] with her significant other, Mike. She designates her daughter, Katya Foy, as her surrogate decision maker and she wishes to be a full code. She has at the most a 5 pack year smoking history and quit in her 20s or 30s. No alcohol or drug use. Smoking packs per day: 0.5 Smoking cigarettes per day: 10.0 Smoking status: Never smoker Tobacco type: cigarettes Second hand tobacco smoke exposure: No Alcohol intake: never Drinks per week: 0 Substance use: never Substance use type: does not use Do You Feel Safe in your Home?: Yes Lack of Transportation: No Lack of Food: Never True Current Housing: I Have Housing Concerned About Future Housing: No Difficulty Paying Gas/Electric Bills: No Difficulty Paying for Meds: No Currently Unemployed: No Education: High School Diploma/GED Difficulty w/ Childcare or Family Care: No Living arrangements: long term Additional living arrangements comments: SIG. OTHER Occupation/Education: retired Gender identity (if verbalized by the patient): Female Spiritual care concerns: No Agree to blood products: Yes Exam Narrative: GENERAL: Well-appearing, well-nourished, and in no acute distress. HEAD: Normocephalic, atraumatic. EYES: PERRLA and EOMI. ENT: Nares clear, no rhinorrhea or epistaxis. Mucous membranes moist. Oropharynx without tonsillar hypertrophy exudate or other lesions. NECK: Supple. No adenopathy or masses. CHEST: No respiratory distress. Clear to auscultation. No wheezes rales or rhonchi HEART: Regular rate and rhythm. No murmur heard. Normal peripheral pulses. ABDOMEN: Soft, nontender, nondistended, normal active bowel sounds. MSK: Normal range of motion. No edema. SKIN: Posterior scalp laceration, difficult to assess due to bleeding. There is a pulsating/spurting bleed from the central aspect of the laceration. NEURO: Alert and oriented x2, at baseline. No focal deficits. PSYCH: Normal mood and affect. Course Vital Signs Vital signs: Vital Signs Temperature 97.6 F 11/18/24 18:52 Pulse Rate 65 11/18/24 18:52 Respiratory Rate 18 11/18/24 18:52 Blood Pressure 173/91 H 11/18/24 18:52 Pulse Oximetry 96 11/18/24 18:52 Oxygen Delivery Room Air 11/18/24 18:52 Temperature 97.6 F 11/18/24 18:52 Pulse Rate 60 11/18/24 21:14 Respiratory Rate 18 11/18/24 21:14 Blood Pressure 164/80 H 11/18/24 21:14 Pulse Oximetry 100 11/18/24 21:14 Oxygen Delivery Room Air 11/18/24 18:52 Procedures Laceration Laceration 1: Date: 11/18/24 Time: 19:27 Site: scalp Size (cm): 2.5 Description: linear Depth: simple, single layer Local Anesthetic: none Pre-repair: wound explored and irrigated extensively ====== Skin Level ====== Skin layer closed with: prolene Size (cm): 4-0 Number of sutures: 2 Technique: simple, interrupted (Figure-eight) ====== Subcutaneous Layer ====== ====== Muscle Layer ====== ====== Tendon Layer ====== MDM - Fall MDM Narrative Medical decision making narrative: This is a 84-year-old female who presents to the ED for chief complaint of laceration to the scalp with head injury this evening. She is coming from [facility] and is alert and oriented at her baseline with dementia. Was called to the room shortly after patient's arrival due to spurting blood from the laceration site. The wound was closed with 2 [id number] sutures with good hemostasis. CT imaging of the brain, facial bones, cervical spine are negative for acute findings. Rx for prophylactic antibiotics given. Tdap updated. Patient will be discharged in stable condition. Supportive measures discussed and return precautions given. Patient is understanding and agreeable with plan for discharge with PCP follow-up. Discharge Plan Discharge Clinical Impression: Laceration of head Patient Disposition: NH Half-Way/Asst Living Condition: Stable Instructions: Antibiotic Form, Laceration (ED) Additional Instructions: Your evaluated today for head injury with laceration. The laceration was closed with stitches. Imaging today is reassuring. No fractures or brain bleed. Please take antibiotics as prescribed. If you have any new or worsening symptoms please return to the ER for further evaluation. Keep wound clean and dry. Do not soak, take baths, or swim until wound is completely healed. If any signs of infection such as redness, swelling, increasing pain, drainage of purulent discharge, streaks up your extremity develop, seek medical attention immediately. Followup with your primary care provider in [7] days for suture removal. Patient Language: Nicaraguan Prescriptions: New cephalexin 500 mg capsule 500 mg PO Q8H Qty: 12 0RF No Action sotalol 80 mg tablet 40 mg PO BID Rx Instructions: Take 1/2 80 mg tablet Spiriva Respimat 2.5 mcg/actuation mist 2 inh inhalation QAM Qty: 4 5RF donepezil 10 mg tablet See Rx Instructions .ROUTE .COMPLEX Qty: 30 5RF Rx Instructions: take 1/2 tablet daily for 2 weeks, then increase to 1 tablet daily; pantoprazole 40 mg tablet,delayed release (DR/EC) 40 mg PO QAM Eliquis 5 mg Tablet 5 mg PO Q12HR 30 Days Qty: 60 0RF cyanocobalamin (vitamin B-12) 1,000 mcg Tablet 1,000 mcg PO DAILY benzonatate 100 mg Capsule 100 mg PO TID PRN (Reason: Cough) albuterol sulfate [Ventolin HFA] 90 mcg/actuation HFA aerosol inhaler 2 puff inhalation BID PRN (Reason: shortness of breath or wheezing) Rx Instructions: 2 puff inhalation bid; memantine 10 mg tablet See Rx Instructions .ROUTE .COMPLEX Qty: 180 1RF Dose Instruction: TAKE 1 TABLET BY MOUTH TWICE A DAY Rx Instructions: TAKE 1 TABLET BY MOUTH TWICE A DAY Follow-up/Referrals: Fransisca Ferreira MD [Primary Care Provider] - Stand Alone Forms: Intermediate Discharge Time of Disposition: 20:26
[2024-11-18] MEDS: CEPHALEXIN 500 MG CAPSULE PO (19:38)
[2024-11-18] MEDS: TETANUS,DIPHTHERIA,AC PERTUSSIS ADULT (0.5 ML) BOOSTRIX IM (19:38)
[2024-11-18 21:14] VITALS: BP 164/80; PULSE 60; RESP 18; O2SAT 100
== END 2024-11-18 21:15 ==
PROVIDERS: Emergency Provider Physician Assistant; PCP Family Medicine
DX: S01.01XA Laceration without foreign body of scalp, initial encounter (principal); W19.XXXA Unspecified fall, initial encounter; Z79.01 Long term (current) use of anticoagulants; G30.9 Alzheimer's disease, unspecified; F02.80 Dementia in other diseases classified elsewhere, unspecified severity, without behavioral disturbance, psychotic disturbance, mood disturbance, and anxiety; I48.91 Unspecified atrial fibrillation; Z85.118 Personal history of other malignant neoplasm of bronchus and lung; E03.9 Hypothyroidism, unspecified; Z23 Encounter for immunization
CPT/HCPCS: 12001; 70450; 72125; 90471; 90715; 99284; A9270; J2003

== ENCOUNTER 2025-03-11 14:05 | Outpatient (CLI) | payer MEDICARE, MEDICAID, SELFPAY ==
--- NOTE | ~2025-03-11 | XR_ITS ---
CHEST RADIOGRAPH, PA AND LATERAL CLINICAL HISTORY: pneumonia . COMPARISON: 08/22/2023 TECHNIQUE: PA and lateral views of the chest. FINDINGS Redemonstration of a large hiatal hernia. Calcified lymph nodes within the mediastinum suggesting prior granulomatous disease. The remainder of the cardiomediastinal silhouette is otherwise unremarkable. Patchy nodularity within the right upper lobe. Varicose bronchiectasis projects over the left upper lobe. Moderate left-sided pleural effusion, unchanged from prior. The right hemithorax is otherwise clear. IMPRESSION: Patchy nodularity within the right upper lobe with varicose bronchiectasis in the left upper lobe. Moderate left-sided pleural effusion with a large hiatal hernia. Reviewed, dictated and finalized at location A. IMPRESSION: Patchy nodularity within the right upper lobe with varicose bronchiectasis in t he left upper lobe. Moderate left-sided pleural effusion with a large hiatal hernia.
[2025-03-11 14:44] LABS: Basophils Absolute Auto 0.1 K/mm3 (0.0-0.1); Basophils Percent Auto 0.7 % (0.2-1.2); Eosinophils Absolute Auto 0.1 K/mm3 (0-0.3); Eosinophils Percent Auto 1.7 % (0-4.4); Hematocrit 36.6 % (37.0-47.0); Hemoglobin 10.6 g/dL (12.0-15.0); Immature Granulocyte Absolute 0.02 K/mm3 (0.00-0.031); Immature Granulocyte Percent A 0.3 % (0-0.5); Lymphocytes Absolute Auto 1.37 K/mm3 (0.9-3.2); Lymphocytes Percent Auto 19.5 % (18.3-44.2); Mean Corpuscular Hemoglobin 24.4 pg (26-34); Mean Corpuscular Volume 84.1 fl (80-100); Monocytes Absolute Auto 0.9 K/mm3 (0.1-0.6); Monocytes Percent Auto 12.6 % (2.6-8.5); Neutrophils Absolute Auto 4.6 K/mm3 (1.3-6.7); Neutrophils Percent Auto 65.2 % (45.5-73.1); Platelet Count Result 277 k/mm3 (150-375); Red Blood Count 4.35 M/mm3 (4.2-5.4); Red Cell Distribution Width 15.4 % (11.5-14.5)
[2025-03-11 15:03] LABS: Hypochromasia 1+; Platelet Estimate Adequate (Adequate)
[2025-03-11 15:04] LABS: Anisocytosis 1+; Burr Cells 1+; Ovalocytes 1+; Schistocytes None Seen
[2025-03-11 15:07] LABS: Anion Gap 7 mmol/L (4-12); Blood Urea Nitrogen 17 mg/dL (7-17); Calcium 8.8 mg/dL (8.4-10.2); Carbon Dioxide 29 mmol/L (22-30); Chloride 102 mmol/L (98-107); Estimated Glomerular Filt Rate 55; Glucose 102 mg/dL (65-110); Potassium 4.1 mmol/L (3.4-5.0); Sodium 138 mmol/L (137-145)
[2025-03-11 15:20] LABS: Influenza A QL RT-PCR Negative (Negative); Influenza B QL RT-PCR Negative (Negative); RSV RNA, RT-PCR Negative (Negative); SARS-CoV-2 RNA PCR Negative (Negative)
--- OUTSIDE RECORDS SUMMARY | 2025-03-11 16:00 | XMS_ITS | Continuity of Care Document ---
Author Organization [facility] Address [address] [place] [address] [place] [address] Phone Care Team Providers Care Video Rental Clerk Name Role Phone Asher OD, Aris Unavailable Unavailable Procedures Procedure Date Eye Exam & Treatment Advance Directives Directive Yes / No Effective Date File Name No Information Encounters Encounter Description Practice Location Reason(s) For Visit Diagnoses Date Provider Providers Copied on Encounter [facility], [id number] [place] [address] [address], [place], [place], [id number], [place] tel:[phone] [facility] No Information 3-200 7 Asher OD Aris. [address] , [address], [place], [address], [place]. tel:[phone] Family History Family Member Type Diagnosis Age At Onset No Information Payers Payer name Insurance type Covered alliance party ID Authoriza tion(s) No Information Social History Type Description Quantity Date Captured Comments Sex Female Smoking Status No Information Chief Complaint And Reason For Visit No Information Reason For Referral Reason For Referral No Information History Of Present Illness Encounter Date Complaint History Of Prese nt Illness No Information Functional Status Date Functional Assessmen t No Information Instructions Date Instruction Additional Infor mation No Information Assessments Type Assessment Date No Information Patient Care Teams Name Effective Dates (start - stop) Status Members No Information
--- OUTSIDE RECORDS SUMMARY | 2025-03-11 16:00 | XMS_ITS | Clinical Summary ---
Author Organization [facility] [address] [facility] [address] [place] [address] Care Team Providers Care Organizational Development Manager Name Role Phone Fransisca Ferreira MD Primary Care Provider Allergies Active Allergy Reactions Criticality Noted Date Comments Adhesive Tape-Silicones Sulfa (Sulfonamide Antibiotics) Hives,Rash Medium Medications memantine (NAMENDA TITRATION PACK) tablet pack Take 5-10 mg by mouth as directed 5 mg/day for =1 week; 5 mg twice daily for =1 week; 15 mg/day given in 5 mg and 10 mg doses for =1 week; then 10 mg twice daily Active fexofenadine (NICK) 60 mg tablet Take 60 mg by mouth daily Active sotaloL (BETAPACE) 80 mg tabletIndications :Paroxysmal atrial fibrillation (HCC) TAKE 0.5 TABLETS BY MOUTH DAILY. 45 tablet 1 1 Active omeprazole (PriLOSEC) 40 mg capsule 1 Active Eliquis 5 mg tablet TAKE 1 TABLET BY MOUTH TWICE A DAY 60 tablet 6 1 Active albuterol HFA (PROVENTIL HFA,VENTOLIN HFA,PROAIR HFA) 90 mcg/actuation inhaler Inhale 2 puffs every 6 (six) hours as needed 3 Active Spiriva Respimat 2.5 mcg/actuation inhaler Inhale 2 puffs daily 3 Active benzonatate (TESSALON) 100 mg capsuleIndication s:Cough Take 1 capsule (100 mg total) by mouth 3 (three) times a day as needed for cough Active Active Problems Problem Noted Date Diagnosed Date Chronic cough 09/14/2023 Abnormal sputum 09/14/2023 Breast changes, fibrocystic, right 03/07/2019 Apocrine cyst 08/02/2018 Abnormal mammogram 07/12/2018 Abnormal ultrasound of breast 07/12/2018 Paroxysmal atrial fibrillation 01/24/2018 Other chest pain 01/24/2018 Mitral valve disease 10/10/2014 Overview (02/25/2017): Mitral valve disorder Malignant neoplasm of lung 05/30/2014 Immunizations Immunization Administration Dates Next Due Influenza, Quad, Adjuvantate d, Intramuscular 08/22/2020 Influenza, Trivalent, High D ose, Split, Preservative Free, Intramuscular 08/14/2019,08/22/2018,08/21/2018,08/21,08/23/2016,08/21/2015 Pneumococcal Conjugate PCV 13 08/14/2019 Social History Tobacco Use Types Packs/Day Years Used Date Smoking Tobacco: Former Smokeless Tobacco: Never Tobacco Cessation:Counseling Given: Not Answered Alcohol Use Standard Drinks/Week Comments Yes 0 (1 standard drink = 0.6 oz pur e alcohol) PHQ-2 Answer Date Recorded PHQ-2 Total Score (If total score is 3 or more points, staff should administer the PHQ-9) 0 02/26/2020 Personal Safety Answer Date Recorded Getting School Help Needed Not on file 01/20 Comments Unknown Sex and Gender Information Value Date Recorded Sex Assigned at Not on file 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 Gender Identity Not on file Sexual Orientation Not on file Obstetrics History Last Filed Vital Signs Vital Sign Reading Time Taken Comments Blood Pressure 122/82 03/29/2024 10:15 AM CDT Pulse 63 03/29/2024 10:15 AM CDT Temperature 36.9 C (98.4 F) 09/14/2023 9:01 AM CDT Respiratory Rate - - Oxygen Saturation 96% 03/29/2024 10: 15 AM CDT Inhaled Oxygen Concentration - - Weight 54.3 kg (119 lb 12.8 oz) 024 10:15 AM CDT Height 162.6 cm (5' 4 ) 03/29/2024 10:1 5 AM CDT Body Mass Index 20.56 03/29/2024 10:15 AM CDT Plan of Treatment Health Maintenance Due Date Last Done Comments Fall Risk Assessment 1940 Osteoporosis Screening-Bone Density Scan 1940 DTaP/Tdap/Td Vaccine (1 - Tdap) 1951 Hepatitis B Screening 1958 Zoster Vaccine (1 of 2) 1990 Well Visit 65+ 2005 Pneumococcal vaccine 65+ (2 of 2 - PPSV23) 08/14/2020 08/14/2019 Depression Screening 02/25/2021 02/26/2020, 10/25/20 19 Influenza Vaccine (Season Ended) 2025 08/22/2020, 08/14/2019, 08/22/2018, Additional history exists Insurance MEDICARE [facility] MEDIC[facility]IC[facility] IDOH Care Teams Organizational Development Manager Relationship Specialty Start Date End Date Fransisca Ferreira MD [address] [place], [place] [id number] PCP - General Family Medicine 08/17/23
--- OUTSIDE RECORDS SUMMARY | 2025-03-11 16:00 | XMS_ITS | Referral Summary ---
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
--- OUTSIDE RECORDS SUMMARY | 2025-03-11 16:00 | XMS_ITS | Encounter Summary ---
Author Organization [facility] Address [address] [place] [address] Phone Care Team Providers Care Soda Jerker Name Role Phone Fransisca Ferreira MD Primary Care Provider Encounter Details Date Type Department Care Team (Late st Contact Info) Description 08/22/2023 Orders Only [facility] Scanning, Provider Social History Tobacco Use Types Packs/Day Years Used Date Smoking Tobacco: Former Smokeless Tobacco: Never Alcohol Use Standard Drinks/Week Comments Yes 0 (1 standard drink = 0.6 oz pur e alcohol) PHQ-2 Answer Date Recorded PHQ-2 Total Score (If total score is 3 or more points, staff should administer the PHQ-9) 0 02/26/2020 Comments Unknown Sex and Gender Information Value Date Recorded Sex Assigned at Not on file Legal Sex Female 3:17 AM HHA Gender Identity Not on file Sexual Orientation Not on file documented as of this encounter Plan of Treatment Not on file documented as of this encounter Procedures Procedure Name Priority Date/Time Associated Diagnosis Comments SCAN - RADIOLOGY/IMAGING 08/22/2023 documented in this encounter Results * SCAN - RADIOLOGY/IMAGING (08/22/2023) Anatomical Region Laterality Modality Other us Provider Scanning Edited Result - Final documented in this encounter Visit Diagnoses Not on filedocumented in this encounter Care Teams Soda Jerker Relationship Specialty Start Date End Date Fransisca Ferreira MD [address] [facility] [address] [place] [address] PCP - General Family Medicine 08/17/23 documented as of this encounter
== END 2025-03-11 14:06 | disposition home or self-care (01) ==
PROVIDERS: PCP Internal Medicine; Visit Provider Internal Medicine Critical Care Medicine
DX: J18.9 Pneumonia, unspecified organism (principal); Z20.822 Contact with and (suspected) exposure to COVID-19; J90 Pleural effusion, not elsewhere classified
CPT/HCPCS: 36415; 71046; 80048; 85025; 87449; 87637; 87899

== ENCOUNTER 2025-09-13 03:36 | Emergency (ER) | payer MEDICARE, MEDICAID, SELFPAY ==
--- NOTE | ~2025-09-13 | CT_ITS ---
CT HEAD NON-CONTRAST Clinical History: fall Comparison: 11/18/2024 Technique: Unenhanced axial images skull base to vertex Coronal, sagittal reformats CT images acquired with automatic exposure control for dose reduction DLP: 681 mGy-cm Findings: Age-related atrophy. Chronic white matter microvascular ischemic changes. Sulci, ventricles: Unremarkable. No intracerebral hemorrhage. No evidence acute territorial infarct. No mass effect, midline shift. Bony calvarium intact. Visualized paranasal sinuses: Clear. Mastoid air cells: Clear. IMPRESSION: 1. No acute intracranial findings. Reviewed, dictated and finalized at location R.
[2025-09-13 03:43] VITALS: BP 182/67; PULSE 65; RESP 16; TEMP 37; O2SAT 95
[2025-09-13 03:49] VITALS: O2SAT 97
[2025-09-13 04:00] VITALS: O2SAT 97
[2025-09-13 04:02] VITALS: BP 160/65; PULSE 82; RESP 17; O2SAT 98
[2025-09-13 04:25] VITALS: BP 177/87; PULSE 70; RESP 16; O2SAT 100
[2025-09-13 04:26] VITALS: O2SAT 100
--- NOTE | 2025-09-13 04:57 | ED.FALL ---
HPI - Fall General Chief Complaint: Fall Stated Complaint: fall, head injury Time Seen by Provider: 09/13/25 03:53 History of Present Illness HPI Narrative: 85-year-old female with history of advanced dementia and atrial fibrillation on Eliquis. Patient presents to the emergency department today from her skilled care facility for concerns of unwitnessed fall. Patient does have a small hematoma in the posterior overhead but denies any pain. Patient unable to recall incident due to dementia but a reportedly by EMS she approached nursing staff this evening and told them she fell earlier. Patient ambulatory at baseline. Patient has no complaints at this time. Denies any headache, vision changes, nausea, vomiting, abdominal pain, back pain, fever, chills, weakness or sensory changes. Was otherwise in her normal state of health per report. Related Data Home Medications ?Medication ?Instructions ?Recorded ?Confirmed ?Last Taken ?Type sotalol 80 mg tablet 40 mg PO BID 11/06/19 04/24/25 10/19/23 07:00 History pantoprazole 40 mg tablet,delayed 40 mg PO QAM 06/14/23 04/24/25 10/18/23 History release albuterol sulfate 90 mcg/actuation 2 puff inhalation BID PRN 07/15/23 04/24/25 10/18/23 History aerosol inhaler (Ventolin HFA) shortness of breath or wheezing benzonatate 100 mg capsule 100 mg PO TID PRN Cough 07/15/23 04/24/25 10/18/23 History cyanocobalamin (vitamin B-12) 1,000 mcg PO DAILY 07/15/23 04/24/25 10/18/23 History 1,000 mcg tablet cholecalciferol (vitamin D3) 25 50 mcg PO DAILY 04/24/25 04/24/25 Unknown History mcg (1,000 unit) tablet Allergies Allergy/AdvReac Type Severity Reaction Status Date / Time Sulfa (Sulfonamide Allergy Severe Hives Verified 09/13/25 03:47 Antibiotics) adhesive tape AdvReac Itching/LANNY Verified 09/13/25 03:47 H Review of Systems Review of Systems: As reviewed above in HPI PMFSH Past Medical History Medical History Dementia of Alzheimer's type with behavioral disturbance Dysphagia Malignant neoplasm of lung Dementia, unspecified, without behavioral disturbance SOB (shortness of breath) Seborrheic keratosis Screening for cholesterol level Rib pain on left side Memory loss Malignant neoplasm of lower lobe of left lung Lumbar radiculopathy Left arm pain Hyperglycemia History of atrial fibrillation Hiatal hernia Gastro-esophageal reflux disease without esophagitis Former smoker Chest pain Body mass index [BMI] 21.0-21.9, adult (02/19/19) Afib Metz palsy right sided Fracture closed, clavicle, shaft Arthritis Hypothyroid Esophageal dilatation x2 HTN (hypertension) boderline Heart murmur Dementia early Seasonal allergies Cataracts, bilateral Atrial fibrillation Lung cancer Status post left lower lobectomy [place] [address] Austin Adkins. Asthma Mitral valve disease Mild MR by echo September 2019. Patient of Dr. Chaz Ortiz. Esophageal stricture Last EGD with dilatation was in 09/[address] Bonner. Hyperlipidemia boderline Mild dementia Severe sepsis Hospitalized for E coli septicemia September 2019 Surgical History Surgical History H/O: hysterectomy History of bladder suspension procedure Hx of cataract removal with insertion of prosthetic lens History of appendectomy 1959. History of breast biopsy With benign pathology. History of cataract surgery Status post lobectomy of lung Left lower lobectomy for lung cancer in 2013. Family History Family History Father Cerebrovascular accident Grandparent Family history of malignant neoplasm Mother Unknown family medical history Social History Social History Social History: The patient lives in [place], [place] with her significant other, Mike. She designates her daughter, Katya Foy, as her surrogate decision maker and she wishes to be a full code. She has at the most a 5 pack year smoking history and quit in her 20s or 30s. No alcohol or drug use. Smoking packs per day: 0.5 Smoking cigarettes per day: 10.0 Smoking status: Never smoker Tobacco type: cigarettes Second hand tobacco smoke exposure: No Alcohol intake: never Drinks per week: 0 Substance use: never Substance use type: does not use Do You Feel Safe in your Home?: Yes Lack of Transportation: No Lack of Food: Never True Current Housing: I Have Housing Concerned About Future Housing: No Difficulty Paying Gas/Electric Bills: No Difficulty Paying for Meds: No Currently Unemployed: No Education: High School Diploma/GED Difficulty w/ Childcare or Family Care: No Living arrangements: skilled nursing Additional living arrangements comments: SIG. OTHER Occupation/Education: retired Gender identity (if verbalized by the patient): Female Spiritual care concerns: No Agree to blood products: Yes Exam Narrative: GENERAL: [Well-appearing, well-nourished, and in no acute distress.] HEAD: Small posterior occipital hematoma with no bleeding or tenderness. EYES: [PERRLA and EOMI.] ENT: Nares clear, no rhinorrhea or epistaxis. Mucous membranes moist. NECK: Supple. CHEST: [Clear to auscultation. No respiratory distress.] HEART: [Regular rate and rhythm]. No murmur heard. [Normal peripheral pulses.] ABDOMEN: [Soft, nondistended], [nontender], [No rigidity or guarding] EXTREMITIES: Normal range of motion. [No edema.] SKIN: Warm, dry, no rash. NEURO: [No focal deficits]. Alert and oriented x2 which is her baseline PSYCH: [Normal mood and affect.] Course Vital Signs Vital signs: Vital Signs Temperature 37.0 C 09/13/25 03:43 Pulse Rate 65 09/13/25 03:43 Respiratory Rate 16 09/13/25 03:43 Blood Pressure 182/67 H 09/13/25 03:43 Pulse Oximetry 95 09/13/25 03:43 Oxygen Delivery Room Air 09/13/25 03:43 Temperature 37.0 C 09/13/25 03:43 Pulse Rate 70 09/13/25 04:25 Respiratory Rate 16 09/13/25 04:25 Blood Pressure 177/87 H 09/13/25 04:25 Pulse Oximetry 100 09/13/25 04:26 Oxygen Delivery Room Air 09/13/25 03:43 MDM - Fall MDM Narrative Medical decision making narrative: 85-year-old female with history of advanced dementia and atrial fibrillation on Eliquis. Patient presents to the emergency department today from her skilled care facility for concerns of unwitnessed fall. Patient does have a small hematoma in the posterior overhead but denies any pain. Patient unable to recall incident due to dementia but a reportedly by EMS she approached nursing staff this evening and told them she fell earlier. Patient ambulatory at baseline. Patient has no complaints at this time. Denies any headache, vision changes, nausea, vomiting, abdominal pain, back pain, fever, chills, weakness or sensory changes. Was otherwise in her normal state of health per report. Patient is at her baseline mentation hemodynamically stable with no complaints. Obtaining a head CT given her fall with blood thinner use. CT independently reviewed and interpreted by radiology. No acute intracranial hemorrhage noted. Nonspecific white matter disease similar to prior. Patient remains without complaints. Offered Tylenol but declined that she has no pain. Will be transferred back to [facility] she EMS given patient's history of dementia. Medical Records Attestation: I reviewed the patient's medical records. Imaging Data Attestation: I personally reviewed and interpreted this imaging study as follows: My impression: No acute intracranial process. Discharge Plan Discharge Clinical Impression: CHI (closed head injury) Patient Disposition: Home Condition: Stable Instructions: Antibiotic Form, Contusion in Adults (ED) Additional Instructions: CT scan shows no injuries. Follow-up with regular doctor as needed and return with any emergent concerns. Take Tylenol if you have any headache. Patient Language: German Prescriptions: No Action sotalol 80 mg tablet 40 mg PO BID Rx Instructions: Take 1/2 80 mg tablet cholecalciferol (vitamin D3) 25 mcg (1,000 unit) tablet 50 mcg PO DAILY Spiriva Respimat 2.5 mcg/actuation mist 2 inh inhalation QAM Qty: 4 5RF donepezil 10 mg tablet See Rx Instructions .ROUTE .COMPLEX Qty: 30 5RF Rx Instructions: take 1/2 tablet daily for 2 weeks, then increase to 1 tablet daily; pantoprazole 40 mg tablet,delayed release (DR/EC) 40 mg PO QAM Eliquis 5 mg Tablet 5 mg PO Q12HR 30 Days Qty: 60 0RF cyanocobalamin (vitamin B-12) 1,000 mcg Tablet 1,000 mcg PO DAILY benzonatate 100 mg Capsule 100 mg PO TID PRN (Reason: Cough) albuterol sulfate [Ventolin HFA] 90 mcg/actuation HFA aerosol inhaler 2 puff inhalation BID PRN (Reason: shortness of breath or wheezing) Rx Instructions: 2 puff inhalation bid; memantine 10 mg tablet See Rx Instructions .ROUTE .COMPLEX Qty: 180 1RF Dose Instruction: TAKE 1 TABLET BY MOUTH TWICE A DAY Rx Instructions: TAKE 1 TABLET BY MOUTH TWICE A DAY Follow-up/Referrals: Elin,Kuldeep Dunham DO [Primary Care Provider, Unknown] Time of Disposition: 05:01
== END 2025-09-13 05:58 ==
PROVIDERS: Emergency Provider Student in an Organized Health Care Education/Training Program; PCP Internal Medicine
DX: S00.03XA Contusion of scalp, initial encounter (principal); G30.9 Alzheimer's disease, unspecified; F02.818 Dementia in other diseases classified elsewhere, unspecified severity, with other behavioral disturbance; I48.91 Unspecified atrial fibrillation; I34.1 Nonrheumatic mitral (valve) prolapse; E03.9 Hypothyroidism, unspecified; J45.909 Unspecified asthma, uncomplicated; K44.9 Diaphragmatic hernia without obstruction or gangrene; M19.90 Unspecified osteoarthritis, unspecified site; Z87.891 Personal history of nicotine dependence; Z85.118 Personal history of other malignant neoplasm of bronchus and lung; Z90.710 Acquired absence of both cervix and uterus; Z96.1 Presence of intraocular lens; Z98.49 Cataract extraction status, unspecified eye; Z90.2 Acquired absence of lung [part of]; W19.XXXA Unspecified fall, initial encounter
CPT/HCPCS: 70450; 99284